=== PATIENT | male | born 1935 | race Caucasian/White ===

== ENCOUNTER 2024-03-08 09:57 | Observation (INO) ==
--- NOTE | 2024-03-08 10:44 | Emergency Department Note ---
Impression & Plan UTI (urinary tract infection), Tick bite of abdomen ED Provider Note NAME: LOIS DINERO AGE: 88 SEX: M : 1935 ARRIVES VIA: Walk-In INFORMANT: Patient ED PROVIDER(S): Oliver Mckeon DO CHIEF COMPLAINT: Shaking chills, weakness HPI: Patient is an 88-year-old male who presents to the ER for symptoms that started last night. He admits to shaking chills for several hours. He could not control himself. With this he notes he was also confused. Denies any headache or change in vision. No chest pain or shortness of breath. No cough or congestion. No belly pain. No nausea, vomiting, or diarrhea. Admits to a tick bite which she removed over the past several days. No rash. No recorded fevers that he is aware of. Daughter provides additional history and notes that the tick bite is on his abdomen. ADDITIONAL HISTORY OBTAINED: Per HPI Chronic Medical/Social Conditions Affecting Care: Per HPI PAST MEDICAL HISTORY:See Below PAST SURGICAL HISTORY:See Below FAMILY HISTORY:See Below SOCIAL HISTORY:See Below HOME MEDICATIONS:See Below ALLERGIES:See Below VITALS:See Below PHYSICAL EXAMINATION: GENERAL: Sitting up in bed, alert, well appearing, well nourished, no distress, non-toxic EYE EXAM: normal conjunctiva. PERRL and EOM's grossly intact. OROPHARYNX: no exudate, no erythema, lips, buccal mucosa, and tongue normal and mucous membranes are moist NECK: supple, no nuchal rigidity, no adenopathy, non-tender LUNGS: Clear to auscultation. Normal chest wall mechanics HEART: no murmurs, S1 normal and S2 normal ABDOMEN: abdomen soft, non-tender, normo-active bowel sounds, no masses, no rebound or guarding. BACK: Back is symmetrical on inspection and there is no deformity, no midline tenderness, no CVA tenderness. SKIN: no rashes and no bruising UPPER EXTREMITIES: upper extremities are grossly normal. LOWER EXTREMITIES: No pitting edema. NEURO EXAM: Normal sensorium, cranial nerves II-XII grossly intact, normal speech, no gross weakness of arms, no gross weakness of legs. MEDICAL DECISION MAKING: Patient is an 88-year-old male who presents to the ER for rigors. IV was established medicos obtained. Labs show no significant leukocytosis or anemia. BMP with mild hypokalemia at 133. Creatinine slightly up at 1.7. Lactate was normal at 1.8. Pro-Aric normal. UA consistent with UTI when resulted just after admission. Chest x-ray with a questionable left lower lobe infiltrate. Patient was covered with Rocephin and azithromycin. Lyme was negative. Patient with the confusion and weakness and rigors was discussed with the hospitalist for further evaluation management treatment. Consults/Care Managements Discussions: Per MDM Triage Nursing notes reviewed. Limited review of prior medical records performed Vital Signs: reviewed and remarkable for HTN Differential diagnosis: Differential diagnosis includes etiologies such as sepsis, UTI, pneumonia, metabolic, electrolyte abnormalities, cardiac sources, intracerebral event, toxicologic, neurological, as well as others were entertained. ER treatment provided: See below Diagnostics interpreted by me include EKG and cardiac monitoring as listed below: -Cardiac Monitoring: An order was placed for continuous cardiac monitoring. The monitor shows a rate of 80 with sinus rhythm. -ECG: none -Laboratory studies:Interpreted by me as stated above in MDM and shown below. Imaging studies: Xrays: As interpreted by me: Portable AP upright 1 view of the chest shows questionable left lower lobe infiltrate CTs show: none Procedures:none Critical Care: None Past Med/Surg History Problem List (Updated 03/08/24 @ 14:43 by Oliver Mckeon DO) Tick bite of abdomen (Acute) UTI (urinary tract infection) (Acute) Medical History (Updated 03/08/24 @ 14:43 by Oliver Mckeon DO) Anxiety CKD (chronic kidney disease) stage 3, GFR 30-59 ml/min GERD (gastroesophageal reflux disease) HLD (hyperlipidemia) HTN (hypertension) CAD (coronary artery disease) Surgical History (Updated 03/08/24 @ 12:14 by Beatriz De La Cruz PA-C) Hx of cystoscopy Hx of inguinal hernia repair Hx of coronary artery bypass graft History of tonsillectomy and adenoidectomy Hx of prostatectomy Family History (Updated 03/08/24 @ 12:14 by Beatriz De La Cruz PA-C) Other Cancer Coronary heart disease Stroke Social History (Updated 03/08/24 @ 12:15 by Beatriz De La Cruz PA-C) Smoking Status: Never smoker Hx Alcohol Use: No Hx Substance Use: No Preferred Language: Luxembourgish Feels Safe at Home: Yes Allergies Allergies Allergy/AdvReac Type Severity Reaction Status Date / Time No Known Allergies Allergy Mild Unverified 09/04/03 11:41 Home Meds Home Medications Medication Instructions Recorded Confirmed albuterol sulfate 90 mcg/actuation 2 puff inhalation Q6H PRN 03/08/24 03/08/24 aerosol inhaler cough,sob,wheezing amlodipine 2.5 mg tablet 2.5 mg PO QAM 03/08/24 03/08/24 aspirin 81 mg tablet,delayed 81 mg PO QAM 03/08/24 03/08/24 release citalopram 20 mg tablet 20 mg PO QAM 03/08/24 03/08/24 isosorbide mononitrate 60 mg 60 mg PO QAM 03/08/24 03/08/24 tablet,extended release 24 hr metoprolol succinate 25 mg 12.5 mg PO QAM 03/08/24 03/08/24 tablet,extended release 24 hr nitroglycerin 0.4 mg sublingual 0.4 mg sublingual UD PRN Chest Pain 03/08/24 03/08/24 tablet rosuvastatin 5 mg tablet 5 mg PO QAM 03/08/24 03/08/24 Results & Data (ED) Vital Signs Vital Signs - 24 hr 03/08/24 09:58 03/08/24 10:08 03/08/24 12:01 Temperature 37.4 C Temperature Source Oral Pulse Rate 74 Pulse Rate [Finger] 63 Respiratory Rate 16 18 Respiratory Effort / Characteristics Non-Labored Spontaneous Blood Pressure 154/73 H Blood Pressure [Right Arm] 140/72 Blood Pressure Mean 100 Blood Pressure Mean [Right Arm] 94 Blood Pressure Position Sitting Pulse Oximetry 94 98 Oxygen Delivery Method Room Air Room Air Room Air Sepsis Recent Fever Within 48 Hours No Sepsis New/Unexplained Change in Mental Status N/A Sepsis Action Taken by Nursing No Action Required Laboratory Data 03/08/24 10:33 03/08/24 10:33 Lab Results 03/08/24 03/08/24 03/08/24 Range/Units 10:33 10:47 11:47 WBC 6.27 (4.8-10.8) K/ul RBC 4.40 L (4.70-6.10) M/uL Hgb 14.0 (14.0-18.0) g/dl Hct 41.1 L (42.0-52.0) % MCV 93.4 (80.0-100.0) fL MCH 31.8 (25.0-34.0) pg MCHC 34.1 (32.0-36.0) g/dL RDW Std Deviation 52.8 H (36.4-46.3) fL RDW Coeff of Law 15.3 H (11.5-14.5) % Plt Count 212 (130-400) K/uL MPV 9.8 (9.4-12.4) fL Immature Gran % (Auto) 1.8 % Neut % (Auto) 80.2 % Lymph % (Auto) 10.2 % Tyler % (Auto) 7.3 % Eos % (Auto) 0.0 % Baso % (Auto) 0.5 % Neut # (Auto) 5.03 (1.40-6.50) K/uL Lymph # (Auto) 0.64 L (1.20-3.40) K/uL Tyler # (Auto) 0.46 (0.11-0.59) K/uL Eos # (Auto) 0.00 (0.00-0.50) K/uL Baso # (Auto) 0.03 (0.00-0.20) K/uL Immature Gran # (Auto) 0.11 (0.01-0.20) K/uL Sodium 133 L (136-145) mmol/L Potassium 4.1 (3.5-5.1) mmol/L Chloride 102 (98-107) mmol/L Carbon Dioxide 23 (21-32) mmol/L Anion Gap 8 (3-11) BUN 26 H (6-23) mg/dl Creatinine 1.72 H (0.6-1.4) mg/dl Est Cr Clr Drug Dosing Not Reportable eGFR 37.53 BUN/Creatinine Ratio 15.1 (10-20) Glucose 140 H (70-99(Fasting)) mg/dl Lactate 1.8 (0.4-2.0) mmol/L Calcium 9.3 (8.6-10.3) mg/dl Total Bilirubin 1.4 H (0.2-1.0) mg/dl Direct Bilirubin 0.2 (0-0.2) mg/dl AST 24 (13-39) U/L ALT 22 (7-52) U/L Alkaline Phosphatase 62 (34-104) U/L Total Protein 6.9 (6.0-8.3) gm/dl Albumin 4.2 (3.4-5.0) gm/dl Globulin 2.7 (2.5-4.0) gm/dl Albumin/Globulin Ratio 1.6 (0.9-2) Lipase 13 (11-82) U/L Procalcitonin 0.40 (0-0.5) ng/ml Urine Color Yellow Urine Appearance Cloudy A (Clear) Urine pH 7.0 (4.5-7.5) Ur Specific [place] 1.017 (1.000-1.030) Urine Protein 1+ H (Negative) Urine Glucose (UA) Negative (Negative) Urine Ketones Negative (Negative) Urine Blood Negative (Negative) Urine Nitrite Negative (Negative) Urine Bilirubin Negative (Negative) Urine Urobilinogen Negative (Negative) Ur Leukocyte Esterase 1+ H (Negative) Urine WBC (Auto) 11-20 H (0-5) /hpf Urine RBC (Auto) 0-2 (0-2) /hpf U Hyaline Cast (Auto) 0-2 (0-2) /lpf U Epithel Cells (Auto) 0-2 (0-2) /hpf Urine Bacteria (Auto) 4+ H (None Seen) Lyme Disease Screen Negative (Negative) Administered Medications Discontinued Medications Azithromycin (Azithromycin 250 Mg Tab) 500 mg PO NOW ONE Stop: 03/08/24 11:36 Last Admin: 03/08/24 11:52 Dose: 500 mg Documented By: MYRNA Sodium Chloride (Nss) 1,000 mls @ 999 mls/hr IV .Q1H1M ONE Stop: 03/08/24 11:41 Last Infusion: 03/08/24 14:19 Dose: Infused Documented By: Admin: 03/08/24 11:12 Dose: 999 mls/hr Documented By: MYRNA Ceftriaxone Sodium (Rocephin) 2,000 mg in 50 mls @ 100 mls/hr IV NOW STA Stop: 03/08/24 12:04 Last Infusion: 03/08/24 14:19 Dose: Infused Documented By: Admin: 03/08/24 11:52 Dose: 100 mls/hr Documented By: MYRNA Imaging Data Radiologist's Impression: Chest X-Ray 03/08/24 10:41 SINGLE VIEW CHEST CLINICAL HISTORY: Sepsis. FINDINGS: An AP, portable, upright chest radiograph is obtained. No prior studies are available for comparison at the time of dictation. The patient is status post midline sternotomy. The heart is enlarged noting atherosclerotic calcification of the thoracic aorta. The pulmonary vasculature is noncongested. There is airspace consolidation at the left lung base and a small left pleural effusion. Scarring/atelectasis is noted at the right lung base. No pneumothorax is seen. The skeletal structures are osteopenic. The bony thorax is grossly intact. Degenerative change is noted in the shoulders and spine. IMPRESSION: 1. Cardiomegaly without radiographic evidence of congestive failure. 2. Left basilar consolidation could represent atelectasis versus pneumonia/aspiration pneumonitis. Clinical correlation will be required and radiographic follow-up to resolution is recommended. Follow-up imaging should include both PA and lateral views. 3. Small left pleural effusion. ACT 112: Negative or not required by law. Electronically signed by: Jonathan Dill M.D. 03/08/2024 10:[address] 03/08/24 10:42 CT head/brain wo con CLINICAL HISTORY: 88 years-old Male with ams. Acutely altered mental status TECHNIQUE: Multiple axial CT images of the head were obtained without contrast. A dose lowering technique was utilized adhering to the principles of ALARA. CT DOSE: 625.8 mGy.cm COMPARISON: None. FINDINGS: No acute intracranial hemorrhage, midline shift, intracranial mass, hydrocephalus, territorial ischemia or abnormal extra-axial collection. Involutional changes with chronic microvascular ischemic disease. Chalo cisterna magna. The calvarium is intact. Trace mastoid effusions. Minimal mucosal thickening of the ethmoid air cells. Unremarkable soft tissues. Prior bilateral lens repair. IMPRESSION: No acute intracranial abnormality identified. ACT 112: Negative or not required by law. The above report was generated using voice recognition software. It may contain grammatical, syntax or spelling errors. Electronically signed by: Dagoberto Garcia M.D. 03/08/2024 11:35 AM Discharge Plan Visit Data Chief Complaint: Confusion Stated Complaint: CONFUSION, POSSIBLE FEVER, TIC, WEAKNESS, CHILLS ED Provider: Oliver Mckeon Discharge Problem: UTI (urinary tract infection), Tick bite of abdomen Patient Disposition: Admitted As Inpatient Discharge Instructions Interventions: ED Discharge Assessment Last Done: 03/08/24 14:37
--- NOTE | 2024-03-08 10:51 | XRay Report ---
SINGLE VIEW CHEST CLINICAL HISTORY: Sepsis. FINDINGS: An AP, portable, upright chest radiograph is obtained. No prior studies are available for c omparison at the time of dictation. The patient is status post midline sternotomy. The heart is enlar ged noting atherosclerotic calcification of the thoracic aorta. The pulmonary vasculature is nonconge sted. There is airspace consolidation at the left lung base and a small left pleural effusion. Scarri ng/atelectasis is noted at the right lung base. No pneumothorax is seen. The skeletal structures are osteopenic. The bony thorax is grossly intact. Degenerative change is noted in the shoulders and spin e. IMPRESSION: 1. Cardiomegaly without radiographic evidence of congestive failure. 2. Left basilar consolidation could represent atelectasis versus pneumonia/aspiration pneumonitis. Cl inical correlation will be required and radiographic follow-up to resolution is recommended. Follow-u p imaging should include both PA and lateral views. 3. Small left pleural effusion. ACT 112: Negative or not required by law. Electronically signed by: Jonathan Dill M.D. 03/08/2024 10:49 AM
[2024-03-08 10:55] LABS: Basophils # (auto) 0.03 K/uL (0.00-0.20); Basophils % (auto) 0.5 %; Hematocrit (blood only) 41.1 % (42.0-52.0); Immature Granulocytes # (auto) 0.11 K/uL (0.01-0.20); Immature Granulocytes % (auto) 1.8 %; Lymphocytes # (auto) 0.64 K/uL (1.20-3.40); Lymphocytes % (auto) 10.2 %; Mean Corpuscular Hemoglobin 31.8 pg (25.0-34.0); Mean Corpuscular Hgb Conc 34.1 g/dL (32.0-36.0); Mean Corpuscular Volume 93.4 fL (80.0-100.0); Mean Platelet Volume 9.8 fL (9.4-12.4); Monocytes # (auto) 0.46 K/uL (0.11-0.59); Monocytes % (auto) 7.3 %; Neutrophils # (auto) 5.03 K/uL (1.40-6.50); Neutrophils % (auto) 80.2 %; Platelet Count 212 K/uL (130-400); RDW Coefficient of Variation 15.3 % (11.5-14.5); RDW Standard Deviation 52.8 fL (36.4-46.3); White Blood Count 6.27 K/ul (4.8-10.8)
[2024-03-08] MEDS: SODIUM CHLORIDE 0.9% 1,000 ML IV ONE (11:12)
[2024-03-08 11:13] LABS: Alanine Aminotransferase 22 U/L (7-52); Albumin Globulin Ratio 1.6 (0.9-2); Albumin Level 4.2 gm/dl (3.4-5.0); Alkaline Phosphatase 62 U/L (34-104); Anion Gap 8 (3-11); Aspartate Aminotransferase 24 U/L (13-39); BUN Creatinine Ratio 15.1 (10-20); Bilirubin,Total 1.4 mg/dl (0.2-1.0); Blood Urea Nitrogen 26 mg/dl (6-23); Calcium 9.3 mg/dl (8.6-10.3); Carbon Dioxide 23 mmol/L (21-32); Chloride 102 mmol/L (98-107); Globulin 2.7 gm/dl (2.5-4.0); Glucose 140 mg/dl (70-99(Fasting)); Lipase 13 U/L (11-82); Potassium 4.1 mmol/L (3.5-5.1); Sodium 133 mmol/L (136-145); Total Protein 6.9 gm/dl (6.0-8.3)
--- NOTE | 2024-03-08 11:36 | CT Scan Report ---
CT head/brain wo con CLINICAL HISTORY: 88 years-old Male with ams. Acutely altered mental status TECHNIQUE: Multiple axial CT images of the head were obtained without contrast. A dose lowering tech nique was utilized adhering to the principles of ALARA. CT DOSE: 625.8 mGy.cm COMPARISON: None. FINDINGS: No acute intracranial hemorrhage, midline shift, intracranial mass, hydrocephalus, territorial ischem ia or abnormal extra-axial collection. Involutional changes with chronic microvascular ischemic disea se. Chalo cisterna magna. The calvarium is intact. Trace mastoid effusions. Minimal mucosal thickening of the ethmoid air cell s. Unremarkable soft tissues. Prior bilateral lens repair. IMPRESSION: No acute intracranial abnormality identified. ACT 112: Negative or not required by law. The above report was generated using voice recognition software. It may contain grammatical, syntax o r spelling errors. Electronically signed by: Dagoberto Garcia M.D. 03/08/2024 11:35 AM
[2024-03-08] MEDS: cefTRIAXone SODIUM 2,000 MG/50 ML BAG IV STA (11:52)
[2024-03-08] MEDS: AZITHROMYCIN 250 MG TAB PO ONE (11:52)
[2024-03-08 12:16] LABS: Appearance Urine Cloudy (Clear); Bacteria Urine Automated 4+ (None Seen); Bilirubin Urine Negative (Negative); Blood Urine Negative (Negative); Cast Urine Automated 0-2 /lpf (0-2); Color Urine Yellow; Epithelial Cell Urine Auto 0-2 /hpf (0-2); Glucose Urine UA Negative (Negative); Ketones Urine Negative (Negative); Leukocyte Esterase Urine 1+ (Negative); Nitrite Urine Negative (Negative); Protein Urine 1+ (Negative); RBC Urine Automated 0-2 /hpf (0-2); Specific Gravity Urine 1.017 (1.000-1.030); Urobilinogen Urine Negative (Negative)
--- NOTE | 2024-03-08 12:16 | History & Physical Report ---
Date of Service March 08, 2024 Assessment & Plan (1) UTI (urinary tract infection): (2) CAD (coronary artery disease): (3) CKD (chronic kidney disease) stage 3, GFR 30-59 ml/min: (4) HTN (hypertension): (5) Tick bite of abdomen: Plan This is an 88-year-old male who has significant past medical history of CAD with history of angioplasty and stent, HTN and GERD, BPH, CKD stage III baseline creatinine 1.7 and anxiety who presents to the ED due to rigors, chills and episodic confusion x 1 day. Chills/Rigors Possible UTI Metabolic encephalopathy - resolved at time of admission Possible PNA Recent covid19 infection in 01/2024 admit to med/surg currently he is not requiring supplemental oxygen and he does not have a leukocytosis CXR:Left basilar consolidation could represent atelectasis versus pneumonia/aspiration pneumonitis. Clinical correlation will be required and radiographic follow-up to resolution is recommended. Follow-up imaging should include both PA and lateral views. CT head: negative, sx resolved no indication for MRI at this time Await blood and urine cultures empirically treat with IV rocephin 2g daily and doxycycline 100mg BID for possible UTI/PNA/tick bite PT/OT encourage oral intake Tick bite: RLQ abd wall, no erythema migrans, initial lyme screen negative, tick was engorged, pt currently on Doxy to cover to Pulm - would recommend 10 day course to cover for lyme as well CKD-3b:chronic, stable, cr at baseline, avoid nephrotoxic agents CAD with hx of CABG/angioplasty: chronic HAM[place]TON/exertional CP, follows cards, continue ASA, crestor, metoprolol, amlodipine, imdur HTN: chronic, stable, continue amlodipine, imdur, metoprolol HLD: chronic, stable, continue statin DVT ppx: Heparin FULL CODE PCP: Garrison Dean Dispo: admit to med/surg, await cultures, I spent a total of 60 minutes reviewing notes, outpatient records, labs, med ication, coordinating, documenting and providing care for this patient excluding time spent in the performance of separately billed services. Pt was seen and examined in collaboration with Dr. Irwin, please see addendum History of Present Illness Chief Complaint: Rigors/Chills x 1 day. Primary Care Provider: Garrison Dean DO This is an 88-year-old male who has significant past medical history of CAD with history of angioplasty and stent, HTN and GERD, BPH, CKD stage III baseline creatinine 1.7 and anxiety who presents to the ED due to rigors, chills and episodic confusion x 1 day. History obtained from ED provider, patient and external chart review.Daughter at bedside also helps elicit history. Patient reports last evening he became very chilled. He had to put on his insulated underwear and wrapped up in a quilted blanket. He felt like he had a fever but was unable to take it due to not being able to locate his thermometer. He also felt like he was confused and disoriented. When trying to walk he felt like he had to hold onto things. He does have a degree of ambulatory dysfunction at baseline, but this was much worse. When he woke up this morning he still felt slightly disoriented and called his daughter. According to the daughter patient was not slurring his words but did appear anxious. She went over to patient's house and brought him immediately to the ED. Patient denies any sweats, lightheadedness, dizziness, nausea, vomiting, abdominal pain, change in his bowel or urinary habits. He does have chronic shortness of breath in the setting of his CAD. He also has chronic exertional angina for which he follows with cardiology. He has a mild dry cough. He was dx with covid-19 in january, but this has resolved. He has a poor appetite at baseline. He has been trying to increase his fluid intake. He also reports on Tuesday he pulled a tick off to his right lower quadrant of his abdomen. He is unsure how long it was there and feels it was likely engorged. He did not try any oavy-mmv-cigvmgh medications at home. In ED patient remained hemodynamically stable. His CBC and CMP was generally unremarkable. His creatinine was at baseline at 1.7. His urinalysis was concerning for possible infection. His initial Lyme disease screen was negative. Chest x-ray revealed concern for possible left lower lobe atelectasis versus infiltrate. He received a liter of IV fluid, IV Rocephin and oral azithromycin. Patient does report he has a history of UTIs in the past. He also reports whenever he had Lyme's disease over a year ago and he had a fever he was disoriented at that time as well. Allergies Allergy/AdvReac Type Severity Reaction Status Date / Time No Known Allergies Allergy Mild Unverified 09/04/03 11:41 Home Medications Medication Instructions Recorded Confirmed Type albuterol sulfate 90 mcg/actuation 2 puff inhalation Q6H PRN 03/08/24 03/08/24 History aerosol inhaler cough,sob,wheezing amlodipine 2.5 mg tablet 2.5 mg PO QAM 03/08/24 03/08/24 History aspirin 81 mg tablet,delayed 81 mg PO QAM 03/08/24 03/08/24 History release citalopram 20 mg tablet 20 mg PO QAM 03/08/24 03/08/24 History isosorbide mononitrate 60 mg 60 mg PO QAM 03/08/24 03/08/24 History tablet,extended release 24 hr metoprolol succinate 25 mg 12.5 mg PO QAM 03/08/24 03/08/24 History tablet,extended release 24 hr nitroglycerin 0.4 mg sublingual 0.4 mg sublingual UD PRN Chest Pain 03/08/24 03/08/24 History tablet rosuvastatin 5 mg tablet 5 mg PO QAM 03/08/24 03/08/24 History Past Med/Surg History Problem List (Updated 03/08/24 @ 12:48 by Beartiz De La Cruz PA-C) Tick bite of abdomen UTI (urinary tract infection) Medical History (Updated 03/08/24 @ 12:48 by Beatriz De La Cruz PA-C) Anxiety CKD (chronic kidney disease) stage 3, GFR 30-59 ml/min GERD (gastroesophageal reflux disease) HLD (hyperlipidemia) HTN (hypertension) CAD (coronary artery disease) Surgical History (Updated 03/08/24 @ 12:14 by Beatriz De La Cruz PA-C) Hx of cystoscopy Hx of inguinal hernia repair Hx of coronary artery bypass graft History of tonsillectomy and adenoidectomy Hx of prostatectomy Family History (Updated 03/08/24 @ 12:14 by Beatriz De La Cruz PA-C) Other Cancer Coronary heart disease Stroke Social History (Updated 03/08/24 @ 12:15 by Beatriz De La Cruz PA-C) Smoking Status: Never smoker Hx Alcohol Use: No Hx Substance Use: No Preferred Language: Vietnamese Feels Safe at Home: Yes Review of Systems Review of Systems: All systems reviewed & are unremarkable except as noted in HPI & below Physical Exam Physical Exam: Constitutional: WD/WN, vitals as above, NAD, sitting up in bed, pleasant, conversing easily Head: Normocephalic, Atraumatic Eyes: PERRL, conjunctivae normal, anicteric sclerae ENMT: external ear and nose normal, oropharynx normal Neck: trachea midline, no thyromegaly normal visual inspection Respiratory: normal respiratory effort, lungs clear to auscultation, no wheeze, rales, rhonchi. Normal insp/exp effort, no accessory muscle use Cardiovascular: RRR, no murmur, no edema Vessels: no JVD or carotid bruit Chest: normal inspection of chest Abdomen: normal bowel sounds, soft, nontender, no hepatosplenomegaly Musculoskeletal: no cyanosis or clubbing, extremities motor strength 5/5 Skin: + evidence of insect bite on RLQ of abd, no erythema migrans, no rashes, warm and dry normal turgor Neurologic: PERRL, EOMI, accommodation nl, no face palsy, no dysarthria CN's II-XI intact bilaterally and moves all extremities Psychiatric: A+Ox3, euthymic affect Lymphatic: no cervical or axillary lymphadenopathy : deferred Results & Data Results & Data Vital Signs (Past 12 Hours) Vital Signs Temp Pulse Pulse Resp BP BP Pulse Ox 03/08/24 12:01 63 18 140/72 98 03/08/24 10:08 03/08/24 09:58 37.4 C 74 16 154/73 H 94 O2 Del Method 03/08/24 12:01 Room Air 03/08/24 10:08 Room Air 03/08/24 09:58 Room Air Laboratory Results I have independently reviewed and interpreted patient's admitting labs including CBC, CMP, lipase, procal, UA, LA Diagnostic Findings Chest X-Ray 03/08/24 10:41 SINGLE VIEW CHEST CLINICAL HISTORY: Sepsis. FINDINGS: An AP, portable, upright chest radiograph is obtained. No prior studies are available for comparison at the time of dictation. The patient is status post midline sternotomy. The heart is enlarged noting atherosclerotic calcification of the thoracic aorta. The pulmonary vasculature is noncongested. There is airspace consolidation at the left lung base and a small left pleural effusion. Scarring/atelectasis is noted at the right lung base. No pneumothorax is seen. The skeletal structures are osteopenic. The bony thorax is grossly intact. Degenerative change is noted in the shoulders and spine. IMPRESSION: 1. Cardiomegaly without radiographic evidence of congestive failure. 2. Left basilar consolidation could represent atelectasis versus pneumonia/aspiration pneumonitis. Clinical correlation will be required and radiographic follow-up to resolution is recommended. Follow-up imaging should include both PA and lateral views. 3. Small left pleural effusion. ACT 112: Negative or not required by law. Electronically signed by: Jonathan Dill M.D. 03/08/2024 10:[address] 03/08/24 10:42 CT head/brain wo con CLINICAL HISTORY: 88 years-old Male with ams. Acutely altered mental status TECHNIQUE: Multiple axial CT images of the head were obtained without contrast. A dose lowering technique was utilized adhering to the principles of ALARA. CT DOSE: 625.8 mGy.cm COMPARISON: None. FINDINGS: No acute intracranial hemorrhage, midline shift, intracranial mass, hydrocephalus, territorial ischemia or abnormal extra-axial collection. Involutional changes with chronic microvascular ischemic disease. Chalo cisterna magna. The calvarium is intact. Trace mastoid effusions. Minimal mucosal thickening of the ethmoid air cells. Unremarkable soft tissues. Prior bilateral lens repair. IMPRESSION: No acute intracranial abnormality identified. ACT 112: Negative or not required by law. The above report was generated using voice recognition software. It may contain grammatical, syntax or spelling errors. Electronically signed by: Dagoberto Garcia M.D. 03/08/2024 11:35 AM Medications Administered Medication List Discontinued Medications Azithromycin (Azithromycin 250 Mg Tab) 500 mg PO NOW ONE Stop: 03/08/24 11:36 Last Admin: 03/08/24 11:52 Dose: 500 mg Documented By: MYRNA Sodium Chloride (Nss) 1,000 mls @ 999 mls/hr IV .Q1H1M ONE Stop: 03/08/24 11:41 Last Admin: 03/08/24 11:12 Dose: 999 mls/hr Documented By: MYRNA Ceftriaxone Sodium (Rocephin) 2,000 mg in 50 mls @ 100 mls/hr IV NOW STA Stop: 03/08/24 12:04 Last Admin: 03/08/24 11:52 Dose: 100 mls/hr Documented By: BMK COVID-19 Results Results COVID-19 Adm Lab Results: RBC 4.40 M/uL (4.70-6.10) L 03/08/24 WBC 6.27 K/ul (4.8-10.8) 03/08/24 Hgb 14.0 g/dl (14.0-18.0) 03/08/24 Hct 41.1 % (42.0-52.0) L 03/08/24 Plt Count 212 K/uL (130-400) 03/08/24 Neutrophils (%) (Auto) 80.2 % 03/08/24 Lymphocytes (%) (Auto) 10.2 % 03/08/24 Monocytes # (Auto) 0.46 K/uL (0.11-0.59) 03/08/24 Eosinophils # (Auto) 0.00 K/uL (0.00-0.50) 03/08/24 Immature Granulocyte % (Auto) 1.8 % 03/08/24 Neutrophils # (Auto) 5.03 K/uL (1.40-6.50) 03/08/24 Lymphocytes # (Auto) 0.64 K/uL (1.20-3.40) L 03/08/24 Monocytes # (Auto) 0.46 K/uL (0.11-0.59) 03/08/24 Eosinophils # (Auto) 0.00 K/uL (0.00-0.50) 03/08/24 Basophils # (Auto) 0.03 K/uL (0.00-0.20) 03/08/24 Immature Granulocyte # (Auto) 0.11 K/uL (0.01-0.20) 4 Na 133 mmol/L (136-145) L 03/08/24 K 4.1 mmol/L (3.5-5.1) 03/08/24 Cl 102 mmol/L (98-107) 03/08/24 CO2 23 mmol/L (21-32) 03/08/24 Anion Gap 8 (3-11) 03/08/24 BUN 26 mg/dl (6-23) H 03/08/24 Creatinine 1.72 mg/dl (0.6-1.4) H 03/08/24 BUN/Creatinine Ratio 15.1 (10-20) 03/08/24 Glucose Level 140 mg/dl (70-99(Fasting)) H 03/08/24 Ca 9.3 mg/dl (8.6-10.3) 03/08/24 Total Bilirubin 1.4 mg/dl (0.2-1.0) H 03/08/24 Direct Bilirubin 0.2 mg/dl (0-0.2) 03/08/24 AST/SGOT 24 U/L (13-39) 03/08/24 ALT/SGPT 22 U/L (7-52) 03/08/24 Alkaline Phosphatase 62 U/L (34-104) 03/08/24 Total Protein 6.9 gm/dl (6.0-8.3) 03/08/24 Albumin 4.2 gm/dl (3.4-5.0) 03/08/24 Globulin 2.7 gm/dl (2.5-4.0) 03/08/24 Albumin/Globulin Ratio 1.6 (0.9-2) 03/08/24 Procalcitonin 0.40 ng/ml (0-0.5) 03/08/24 Chest X-Ray 03/08/24 Code Status & VTE Plan Code Status FULL CODE Supervising Physician Co-Signing Physician Notes Attending addendum: The patient was seen and examined in emergency room in presence of the daughter He has been complaining of shaking chills since last night and confusion Denies any chest pain, palpitation or shortness of breath Denies any problem with urination and/or bowel habit No abdominal pain, nausea and/or vomiting On examination Lying in bed without any apparent distress Afebrile and hemodynamically stable Chestminimal crackles left base Abdomenbenign, slight erythema about the size of a bradley right lower quadrant at the site of tick bite extremitiesno edema CNSalert, awake and oriented x 3. No focal sensory or motor deficit appreciated His admission labs, imaging studies noted Acute confusion likely secondary to UTI/tick bite illness Doubt any pneumonia involving the left lower lung UA suggestive of infection and will start intravenous ceftriaxone and doxycycline to cover the atypicals CT of the head has been negative and the confusion has been improving Agree with assessment and plan as outlined above by Caprice Irwin
[2024-03-08 13:15] LABS: Bilirubin Direct 0.2 mg/dl (0-0.2)
[2024-03-08] MEDS ORDERED: ACETAMINOPHEN 325 MG TAB PO PRN (14:37)
[2024-03-08] MEDS ORDERED: POLYETHYLENE (MIRALAX) 17 GM PACK PO PRN (14:37)
[2024-03-08] MEDS ORDERED: ONDANSETRON INJ 2 MG/ML 2 ML VIAL IV PRN (14:37)
[2024-03-08] MEDS ORDERED: FAMOTIDINE 20 MG TAB PO PRN (14:37)
[2024-03-08] MEDS: Patient's HEIGHT &/or WEIGHT Needed STA (15:39)
[2024-03-08] MEDS: METOPROLOL SUCC 25MG EXT REL TAB PO SCH (17:12)
[2024-03-08] MEDS: DOXYCYCLINE HYCLATE 100 MG CAP PO SCH (20:21)
[2024-03-08] MEDS ORDERED: MELATONIN 3 MG TAB PO PRN (21:00)
[2024-03-08] MEDS: HEPARIN SOD 5,000 UNIT/0.5 ML VIAL SQ SCH (21:12)
--- OUTSIDE RECORDS SUMMARY | 2024-03-09 07:51 | External Medical Summary | Summary of Care ---
Author Name Unknown Organization [facility] Address [address] [place] [address] Phone [phone] Care Team Providers Care Director Of Child Welfare Services Name Role Phone Garrison Dean DO Primary Care Provider Encounter Details Date Type Department Care Team (Late st Contact Info) Description 01/17/2024 Telephone Family Practice [facility] [address] [place] [address] Sandra Garner CRNP [address] [place] [address] Allergies Active Allergy Reactions Criticality Noted Date Comments Amoxicillin-Pot Clavulanate Diarrhea 10/22/2010 GI intolerance Gemfibrozil 04/25/2006 Severe intestinal gas and cramping Niacin Er 11/22/2006 Gas, chest pain Ezetimibe Muscle pain 04/23/2010 myalgias Simvastatin 04/23/2010 documented as of this encounter (statuses as of 01/18/2024) Medications Medication Sig Dispensed Refills Start Date End Date Status Magnesium Gluconate 250 MG TABS Take 1 Tab by mouth every other day. 06/03/2015 Active fluticasone (FLONASE) 50 MCG/ACT nasal sprayIndications:Ch ronic rhinitis Administer 2 Sprays into each nostril daily. 3 Bottle 3 07/04/2019 Active Zinc 50 MG Oral Capsule Take 1 Capsule by mouth as needed (Seasonal). Active B-12 500 MCG Oral Tablet Take by mouth. When he remembers Active amLODIPine Besylate 2.5 MG Oral Tablet (Norvasc)Indication s:HTN, goal below 150/90 Take 1 Tablet by mouth in the morning. In the morning.. 90 Tablet 3 06/16/2023 Active Metoprolol Succinate ER 25 MG Oral Tablet Extended Release 24 Hour (toPROL XL) Take 0.5 Tablets by mouth in the morning. 45 Tablet 3 06/16/2023 Active Isosorbide Mononitrate ER 60 MG Oral Tablet Extended Release 24 Hour (Imdur)Indications: HTN, goal below 140/90 Take 1 Tablet by mouth in the morning. 90 Tablet 3 10/04/2023 Active Nitroglycerin 0.4 MG Sublingual Tablet Sublingual (Nitrostat)Indicati ons:Precordial pain,Chronic ischemic heart disease Place 1 Tablet under the tongue every 5 minutes as needed (chest pain. Maximum 3 doses in 15 minutes.). 25 Tablet 3 12/05/2023 Active Citalopram Hydrobromide 20 MG Oral Tablet (CeleXA)Indications :Adjustment disorder with anxious mood Take 1 Tablet by mouth in the morning. 90 Tablet 3 12/05/2023 Active Aspirin 81 MG Oral Tablet Delayed ReleaseIndications: Chronic ischemic heart disease,HTN, goal below 140/90 Take 1 Tablet by mouth in the morning. 90 Tablet 3 12/05/2023 Active Rosuvastatin Calcium 5 MG Oral Tablet (Crestor) Take 1 Tablet by mouth in the morning. In the morning.. 90 Tablet 3 12/05/2023 Active predniSONE 20 MG Oral Tablet (Deltasone) Take 1 Tablet by mouth in the morning for 5 days. 5 Tablet 01/17/2024 01/22/2024 Active Albuterol Sulfate HFA 108 (90 Base) MCG/ACT Inhalation Aerosol SolutionIndications :Mild intermittent asthma with exacerbation Inhale 2 Puffs by mouth every 6 hours as needed for Cough, Shortness of Breath or Wheezing (chest tightness). 36 g 1 01/17/2024 Active Nirmatrelvir&Ritona vir 150/100 10 x 150 MG & 10 x 100MG Oral Tablet Therapy Pack (Paxlovid (150/100)) Take 1 pink tablet of Nirmatrelvir and 1 white tablet of Ritonavir two times a day by mouth. 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 Measure 3-4mm. HTN, goal below 150/90 05/03/2017 Incomplete emptying of bladder 03/15/2017 S/P angioplasty with stent 09/23/2014 Overview: MAURIZIO to Cx-om via right groin 09/23/2014 BPH with obstruction/lower urinary tract symptom s 01/01/2014 Statin intolerance 02/10/2012 Dyslipidemia, goal LDL below 70 05/01/2009 Overview: Per Lipid Taxonomy. Hiatal Hernia 06/27/1997 CHR ISCHEMIC HRT DIS NOS documented as of this encounter (statuses as of 01/18/2024) Resolved Problems Problem Noted Date Diagnosed Date Resolved Date Hypertensive kidney disease with stage 3b chronic kidney disease 03/24/2020 07/14/2021 Overview: Per CKD protocol Bronchitis, chronic 07/04/2019 07/04/19 20 Hypertensive kidney disease with chronic kidney disease stage III 12/14/2018 03/27/2020 Overview: Per CKD protocol Abnormal PFT 10/12/2017 11/30/2022 Environmental allergies 08/25/201711/13 Occupational exposure in workplace 08/25/2017 11/30/2022 KIDNEY DISEASE, CHRONIC, STA GE III (GFR 30-59 ML/MIN) 10/04/2011 12/28/2018 Overview: Per CKD protocol #1 HTN, goal below 140/90 11/22/200605/03 Examination of participant in clinical trial 7 08/29/2009 Overview: Renamed Per Clinical Trials Billing Project. Study Title: Genomic Markers for Patients with Cardiovascular Disease Project # [id number] GENOMICS CARDIO RESEARCH OTHER*[id number] 10/31/2006 06/22/2016 Overview: Renamed Per Clinical Trials Billing Project. Study Title: Genomic Markers for Patients with Cardiovascular Disease Project # [id number] ADVANCE DIRECTIVE INFORMATION 11/02/2004 12/19/2019 Overview: No, Advance Directive brochure given to patient. Historical. Encounter for long-term (cur rent) use of medications 03/23/2004 11/22/2006 Overview: ICD-10 update of inactive term LOC PRIM [id number] 03/27/200211/13 Dyslipidemia, goal to be determined 03/27/2002 05/01/2009 Overview: Per Lipid Taxonomy. PURE HYPERCHOLESTEROLEM 11/13 Urge incontinence 12/19/2019 Overview: Acute. documented as of this encounter (statuses as of 01/18/2024) Immunizations Name Administration Dates Next Due COVID-19 mRNA, LNP-s, No Pre serve, 2-Dose Series ([employer]) 03/02/2021,08/08/2020,07/11/2020 COVID-19, LNP-s, No Preserve , Mauricio-sucrose, Ages 12+ (Pfizer) 09/02/2021 Covid-19, Mrna, Lnp-s, Pf, B ivalent, 30 Mcg, IM, 12 yrs and above ([employer]) 03/09/2022 Pneumococcal Conjugate Vacc, 13 Valent (Prevnar) 03/21/2014 Pneumococcal Polysaccharide PPV23 (Pneumovax) 03/15/2006 RSV Vac., Bivalent, Perfusio n F, Pf,0.5 Ml (Abrysvo) 03/30/2023 Season Influenza, Quad, PF, Adjuvanted, 65+ Yrs, IM (FLUAD) 01/07/2020 Seasonal Influenza, PF, 6 M & above, IM , (FluLaval or Fluzone) 03/16/2018,02/26/2017 Seasonal Influenza, Quadriva lent Hd (Fluzone Hd) 02/25/2023,02/22/2022,02/17/2021 Seasonal Influenza, Quadriva lent, No Preserve, IM 02/19/2016,03/24/2015 Seasonal Influenza, Trivalen t, (IIV3), with Preserv, (Fluzone) 02/22/2014,02/22/2013,02/22/2012,02/15,02/24/2010,01/30/2009,02/19/2008 ,02/28/2007,03/15/2006 Seasonal Influenza, Trivalen t, Adjuvanted, 65+ YRS, PF, (Fluad) 02/26/2019 TD, Preservative Free 04/21/2009 TDAP (age 10 and older)(Boostrix) 03/24/2015 Varicella Zoster Vaccine (Adult) 03/25/2016 Zoster Vaccine Recombinant (Shingrix) 01/07/2020 ,10/29/2019 documented as of this encounter Social History Tobacco Use Types Packs/Day Years Used Date Smoking Tobacco: Never Smokeless Tobacco: Never Alcohol Use Standard Drinks/Week Comments Yes 0 (1 standard drink = 0.6 oz pur e alcohol) 3 per year if that PHQ-2 Answer Date Recorded PHQ Adult Total Score 0 11/30/2022 Hunger Vital Sign Answer Date Recorded Worried About Running Out of Food in the Last Ye ar Never true 07/04/2019 Ran Out of Food in the Last Year Never true 07/04/2019 Utilities Answer Date Recorded Do you have trouble paying y our heating, water, or electric bill? (Adult - for ages 18 years and over) Not on file 11/01/2023 Is your family able to pay t he heat, water, or electric bill? (Household - for ages 0-17 years) Not on file 11/01/2023 Does your family have access to good internet? (Household - for ages 0-17 years) Not on file 11/01/2023 Social Connections Answer Date Recorded How often do you feel lonely or isolated from those around you? (Adult - for ages 18 years and over) Not on file 11/01/2023 Sex and Gender Information Value Date Recorded Sex Assigned at Male 07/04/2019 10:33 AM EST Gender Identity Male 07/04/2019 10:33 AM EST Sexual Orientation Straight 07/04/2019 10 :33 AM EST Job Start Date Occupation Industry Not on file Not on file Not on file documented as of this encounter Miscellaneous Notes * Telephone Encounter - Wang Moore MD - 01/18/2024 4:54 PM EDT Renal dosing sent * Telephone Encounter - Zaria Javed LPN - 01/18/2024 4:41 PM EDT Pt aware, pharmacy picked. * Telephone Encounter - Sandra Garner CRNP - 01/17/2024 4:30 PM EDT PLEASE NOTIFY PATIENT HE IS POSITIVE FOR COVID RECOMMEND PAXLOVID BUT HE WILL NEED TO STOP STATIN WHILE ON IT wHAT PHARMACY? documented in this encounter Plan of Treatment Upcoming Encounters Date Type Department Care Team (Late st Contact Info) Description 05/08/2024 8:00 AM EST [facility] [address] [place] [address] Megan Gardner MD [address] [place] [address] 06/07/2024 9:40 AM EST Office Visit Family [facility] [address] [place] [address] Grecia James CRNP [address] [place] [address] 12/06/2024 8:20 AM EDT Office Visit Family Practice [facility] [address] [place] [address] Garrison Dean DO [address] [place] [address] Health Maintenance Due Date Last Done Comments Adult Wellness Visit 2000 CKD PHOS USE SMARTSET 80836 12/01/202311/13, 07/14/2021, 02/17/2021, Additional history exists Depression Screening 12/01/2023 11/30/2022 COVID-19 Vaccine ( season) 2024 03/09/2022, 09/02/2021, 03/02/2021, Additional history exists Influenza Vaccine (FLU shot) (#1) 2024 02/25/2023, 02/22/2022, 02/17/2021, Additional history exists Albumin/Creatinine Ratio 10/13/2024 024, 11/30/2022, 05/14/2022, Additional history exists CKD HGB USE SMARTSET 81118 10/13/202410/13, 11/30/2022, 11/30/2022, Additional history exists DTap/Tdap Vaccines (2 - Td or Tdap) 03/24/2025 03/24/2015, 04/21/2009 Pneumococcal Vaccine: 65+ Years Completed 03/21/2014, 03/15/2006, 02/29/1996 Zoster Vaccines Completed 01/07/2020, 10/14, 03/25/2016 HPV (Gardasil) Vaccine Aged Out No lo nger eligible based on patient's age to complete this topic Hepatitis B Vaccine Aged Out No longe r eligible based on patient's age to complete this topic MENINGOCOCCAL (MENACTRA/MENVEO) Aged Out No longer eligible based on patient's age to complete this topic documented as of this encounter Medical Devices Not on filedocumented as of this encounter Additional Health Concerns Infection Onset Date Last Indicated Resolved Time COVID-19 (confirmed) 01/17/2024 01/17/2024 documented as of this encounter Advance Directives * Full Code (Latest Code Status on File) Date Activated Date Inactivated Comments 09/23/2014 3:48 PM 09/24/2014 1:35 PM This order r eflects the patients wishes and were consensually agreed upon. Question Answer Comments Discussion of Advance Directives occurred with: Not Discussed Does the patient have a Living Will? No Does the patient have Health Care Power of Attor kamilla? No Care Teams Director Of Child Welfare Services Relationship Specialty Start Date End Date Garrison Dean DO [address] [place] [address] PCP - General Family Medicine 06/14/19 documented as of this encounter
--- OUTSIDE RECORDS SUMMARY | 2024-03-09 07:52 | External Medical Summary | Summary of Care ---
Author Name Unknown Organization [facility] Address [address] [facility] [address] Phone [phone] Care Team Providers Care Patient Registration Clerk Name Role Phone Garrison Deanoliva Primary Care Provider Reason for Visit * Reason Onset Date Comments Test Results 10/20/2023 Encounter Details Date Type Department Care Team (Late st Contact Info) Description 10/20/2023 Telephone Cardiology, [facility] [address] [place] [address] Olivia Lizama PA-C [address] [place] [address] Test Results Allergies Active Allergy Reactions Criticality Noted Date Comments Amoxicillin-Pot Clavulanate Diarrhea 10/22/2010 GI intolerance Gemfibrozil 04/25/2006 Severe intestinal gas and cramping Niacin Er 11/22/2006 Gas, chest pain Ezetimibe Muscle pain 04/23/2010 myalgias Simvastatin 04/23/2010 documented as of this encounter (statuses as of 10/20/2023) Medications Medication Sig Dispensed Refills Start Date End Date Status ASPIRIN 81 MG PO TBECIndications: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 Active Magnesium Gluconate 250 MG TABS Take 1 Tab by mouth every other day. 06/03/2015 Active fluticasone (FLONASE) 50 MCG/ACT nasal sprayIndications:Chr onic rhinitis Administer 2 Sprays into each nostril daily. 3 Bottle 3 07/04/2019 Active Omeprazole 40 MG Oral Capsule Delayed Release (PriLOSEC)Indication s:Diaphragmatic hernia without obstruction and without gangrene Take 1 Cap by mouth daily. 90 Cap 3 11/24/2020 Active Clopidogrel Bisulfate 75 MG Oral Tablet (pLAVix)Indications: S/P angioplasty with stent,Chronic ischemic heart disease,HTN, goal below 140/90 take 1 tablet by mouth once daily 90 Tab 5 12/08/2020 Active Zinc 50 MG Oral Capsule Take 1 Capsule by mouth as needed (Seasonal). Active Albuterol Sulfate HFA 108 (90 Base) MCG/ACT Inhalation Aerosol SolutionIndications: Mild intermittent asthma with exacerbation Inhale by mouth 2 Puffs every 6 hours as needed for Cough, Shortness of Breath or Wheezing (chest tightness). 36 g 1 11/09/2021 Active Famotidine 10 MG Oral Tablet (Pepcid) Take by mouth 1 Tablet in the morning. 90 Tablet 3 12/16/2021 Active B-12 500 MCG Oral Tablet Take by mouth. When he remembers Active Nitroglycerin 0.4 MG Sublingual Tablet Sublingual (Nitrostat)Indicatio ns:Precordial pain,Chronic ischemic heart disease Place 1 Tablet under the tongue every 5 minutes as needed (chest pain. Maximum 3 doses in 15 minutes.). 25 Tablet 3 11/30/2022 Active Rosuvastatin Calcium 10 MG Oral Tablet (Crestor)Indications :Coronary artery disease of bypass graft of [place] heart with stable angina pectoris (HCC),Dyslipidemia, goal LDL below 70 Take 1 Tablet by mouth in the morning. 34 Tablet 11 01/13/2023 Active amLODIPine Besylate 2.5 MG Oral Tablet (Norvasc)Indications :HTN, goal below 150/90 Take 1 Tablet by mouth in the morning. In the morning.. 90 Tablet 3 06/16/2023 Active Citalopram Hydrobromide 20 MG Oral Tablet (CeleXA)Indications: Adjustment disorder with anxious mood Take 1 Tablet by mouth in the morning. 90 Tablet 3 06/16/2023 Active Metoprolol Succinate ER 25 MG Oral Tablet Extended Release 24 Hour (toPROL XL) Take 0.5 Tablets by mouth in the morning. 45 Tablet 3 06/16/2023 Active Isosorbide Mononitrate ER 60 MG Oral Tablet Extended Release 24 Hour (Imdur)Indications:H TN, goal below 140/90 Take 1 Tablet by mouth in the morning. 90 Tablet 3 10/04/2023 Active documented as of this encounter (statuses as of 10/20/2023) Active Problems Problem Noted Date Diagnosed Date Mild intermittent asthma with exacerbation 11/30 Asymptomatic stenosis of right carotid artery Hypertensive kidney disease with stage 3b chronic kidney disease 05/03/2022 Chronic kidney disease, stage 3b 09/23/2020 Overview: Per CKD protocol Coronary artery disease of b ypass graft of [place] heart with stable angina pectoris 07/10/2020 Renal [...] as of this encounter (statuses as of 10/20/2023) Resolved Problems Problem Noted Date Diagnosed Date [...] for Patients with Cardiovascular Disease Project # [id number] GENOMICS CARDIO RESEARCH OTHER*[id number] 10/31/2006 06/22/2016 Overview: Renamed Per Clinical Trials Billing Project. Study Title: Genomic Markers for Patients with Cardiovascular Disease Project # [id number] ADVANCE DIRECTIVE INFORMATION 11/02/2004 12/19/2019 Overview: No, Advance Directive brochure given to patient. Historical. Encounter for long-term (cur rent) use of medications 03/23/2004 11/22/2006 Overview: ICD-10 update of inactive term LOC PRIM [id number] 03/27/200211/13 Dyslipidemia, goal to be determined 03/27/2002 05/01/2009 Overview: Per Lipid Taxonomy. PURE HYPERCHOLESTEROLEM 11/13 Urge incontinence 12/19/2019 Overview: Acute. documented as of this encounter (statuses as of 10/20/2023) Immunizations Name Administration Dates Next Due COVID-19 mRNA, LNP-s, No Pre serve, 2-Dose Series ([employer]) 03/02/2021,08/08/2020,07/11/2020 COVID-19, LNP-s, No Preserve , Mauricio-sucrose, Ages 12+ (Pfizer) 09/02/2021 Covid-19, Mrna, Lnp-s, Pf, B ivalent, 30 Mcg, IM, 12 yrs and above ([employer]) 03/09/2022 Pneumococcal Conjugate Vacc, 13 Valent (Prevnar) [...] lent, No Preserve, IM 02/19/2016,03/24/2015 Seasonal Influenza, Split, I IV3, With Preserve, Inj 02/22/2014,02/22/2013,02/22/2012,02/15,02/24/2010,01/30/2009,02/19/2008 ,02/28/2007,03/15/2006 Seasonal Influenza, Trivalen t, Adjuvanted, 65+ yrs 02/26/2019 TD, Preservative Free 04/21/2009 TDAP (age [...] in the Last Year Never true 07/04/2019 Sex and Gender Information Value Date Recorded Sex Assigned at Male 07/04/2019 10:33 AM EST Gender Identity Male 07/04/2019 10:33 AM EST Sexual Orientation Straight 07/04/2019 10 :33 AM EST Job Start Date Occupation Industry Not on file Not on file Not on file documented as of this encounter Miscellaneous Notes * Telephone Encounter - Summer Ortega LPN - 10/20/2023 11:26 AM EDT Letter * Telephone Encounter - Summer Ortega LPN - 10/20/2023 11:26 AM EDT ----- Message from Ana Orlando sent at 10/19/2023 1:09 PM EDT ----- Results reviewed in coverage of Olivia Lizama PA-C LVEF normal 59%. Mild aortic stenosis with mild aortic regurgitation noted. This is something that will be monitored yearly. No changes needed at this time. documented in this encounter Plan of Treatment Upcoming Encounters Date Type Department Care Team (Late st Contact Info) Description 12/05/2023 8:00 AM EDT Office Visit Family [facility] [address] [place] [address] Garrison Dean DO [address] [place] [address] 05/08/2024 8:00 AM EST Office Visit Nephrology, [facility] [address] [place] [address] Megan Gardner MD [address] [place] [address] Health Maintenance Due Date Last Done Comments COVID-19 Vaccine ( season) 2023 03/09/2022, 09/02/2021, 03/02/2021, Additional history exists CKD PHOS USE SMARTSET 43807 12/01/202311/13, 07/14/2021, 02/17/2021, Additional history exists Depression Screening 12/01/2023 11/30/2022 Albumin/Creatinine Ratio 10/13/20242 024, 11/30/2022, 05/14/2022, Additional history exists CKD HGB USE SMARTSET 02256 10/13/202410/13, 11/30/2022, 11/30/2022, Additional history exists DTaP,Tdap,and Td Vaccines (2 - Td or Tdap) 03/24/2025 03/24/2015, 04/21/2009 Pneumococcal Vaccine: 65+ Years Completed 03/21/2014, 03/15/2006, 02/29/1996 Zoster Vaccines Completed 01/07/2020, 10/14, 03/25/2016 Influenza Vaccine (FLU shot) Completed , 02/22/2022, 02/17/2021, Additional history exists GARDASIL-HPV IMMUNIZATION SERIES Aged Out No longer eligible based on patient's age to complete this topic Hepatitis B Aged Out No longer eligi ble based on patient's age to complete this topic MENINGOCOCCAL (MENACTRA/MENVEO) Aged Out No longer eligible based on patient's age to complete this topic documented as of this encounter Medical Devices Not on filedocumented as of this encounter Advance Directives * [...] Power of Attor kamilla? No Care Teams Patient Registration Clerk Relationship Specialty Start Date End Date Garrison Dean DO [address] [place] [address] PCP - General Family Medicine 06/14/19 documented as of this encounter
--- OUTSIDE RECORDS SUMMARY | 2024-03-09 07:52 | External Medical Summary | Summary of Care ---
Author Name Unknown Organization [facility] Address [address] [facility] [place] [address] Phone [phone] Care Team Providers Care Radiophone Operator Name Role Phone Garrison Dean DO Primary Care Provider Reason for Visit * Reason Comments Physical-Exam Pt here for CPE, no voiced concerns Encounter Details Date Type Department Care Team (Late st Contact Info) Description 12/05/2023 8:00 AM EDT Office Visit 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); Asymptomatic stenosis of right carotid artery; Gastroesophageal reflux disease without esophagitis; Hypertensive kidney disease with stage 3b chronic kidney disease (HCC); S/P angioplasty with stent; Anxiety state; Hyperuricemia; Precordial pain; Chronic ischemic heart disease; Adjustment disorder with anxious mood; HTN, goal below 140/90; Dyslipidemia, goal LDL below 70 Allergies Active Allergy Reactions Criticality Noted Date Comments Amoxicillin-Pot Clavulanate Diarrhea 10/22/2010 GI intolerance Gemfibrozil 04/25/2006 Severe intestinal gas and cramping Niacin Er 11/22/2006 Gas, chest pain Ezetimibe Muscle pain 04/23/2010 myalgias Simvastatin 04/23/2010 documented as of this encounter (statuses as of 12/05/2023) Medications Medication Sig Dispensed Refills Start Date End Date Status Magnesium Gluconate 250 MG TABS Take 1 Tab by mouth every other day. 6 Active fluticasone (FLONASE) 50 MCG/ACT nasal sprayIndications: Chronic rhinitis Administer 2 Sprays into each nostril daily. 3 Bottle 3 0 Active Zinc 50 MG Oral Capsule Take 1 Capsule by mouth as needed (Seasonal). Active Albuterol Sulfate HFA 108 (90 Base) MCG/ACT Inhalation Aerosol SolutionIndicatio ns:Mild intermittent asthma with exacerbation Inhale by mouth 2 Puffs every 6 hours as needed for Cough, Shortness of Breath or Wheezing (chest tightness). 36 g 1 2 Active B-12 500 MCG Oral Tablet Take by mouth. When he remembers Active amLODIPine Besylate 2.5 MG Oral Tablet (Norvasc)Indicati ons:HTN, goal below 150/90 Take 1 Tablet by mouth in the morning. In the morning.. 90 Tablet 3 4 Active Metoprolol Succinate ER 25 MG Oral Tablet Extended Release 24 Hour (toPROL XL) Take 0.5 Tablets by mouth in the morning. 45 Tablet 3 4 Active Isosorbide Mononitrate ER 60 MG Oral Tablet Extended Release 24 Hour (Imdur)Indication s:HTN, goal below 140/90 Take 1 Tablet by mouth in the morning. 90 Tablet 3 4 Active Nitroglycerin 0.4 MG Sublingual Tablet Sublingual (Nitrostat)Indica tions:Precordial pain,Chronic ischemic heart disease Place 1 Tablet under the tongue every 5 minutes as needed (chest pain. Maximum 3 doses in 15 minutes.). 25 Tablet 3 4 Active Citalopram Hydrobromide 20 MG Oral Tablet (CeleXA)Indicatio ns:Adjustment disorder with anxious mood Take 1 Tablet by mouth in the morning. 90 Tablet 3 4 Active Aspirin 81 MG Oral Tablet Delayed ReleaseIndication s:Chronic ischemic heart disease,HTN, goal below 140/90 Take 1 Tablet by mouth in the morning. 90 Tablet 3 4 Active Rosuvastatin Calcium 5 MG Oral Tablet (Crestor) Take 1 Tablet by mouth in the morning. In the morning.. 90 Tablet 3 4 Active ASPIRIN 81 MG PO TBECIndications:C hronic ischemic heart disease,HTN, goal below 140/90 1 TABLET DAILY 34 11 8 12/05/19 24 Discontinued(Ref ill) ferrous sulfate (FEOSOL) 325 (65 FE) MG Tablet Take 1 Tablet by mouth every other day. 12/05/19 24 Discontinued Omeprazole 40 MG Oral Capsule Delayed Release (PriLOSEC)Indicat ions:Diaphragmati c hernia without obstruction and without gangrene Take 1 Cap by mouth daily. 90 Cap 3 1 12/05/19 24 Discontinued Clopidogrel Bisulfate 75 MG Oral Tablet (pLAVix)Indicatio ns:S/P angioplasty with stent,Chronic ischemic heart disease,HTN, goal below 140/90 take 1 tablet by mouth once daily 90 Tab 5 1 12/05/19 24 Discontinued Famotidine 10 MG Oral Tablet (Pepcid) Take by mouth 1 Tablet in the morning. 90 Tablet 3 2 12/05/19 24 Discontinued Nitroglycerin 0.4 MG Sublingual Tablet Sublingual (Nitrostat)Indica tions:Precordial pain,Chronic ischemic heart disease Place 1 Tablet under the tongue every 5 minutes as needed (chest pain. Maximum 3 doses in 15 minutes.). 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 34 Tablet 11 3 12/05/19 24 Discontinued(Med ication List Clean Up) Citalopram Hydrobromide 20 MG Oral Tablet (CeleXA)Indicatio ns:Adjustment disorder with anxious mood Take 1 Tablet by mouth in the morning. 90 Tablet 3 4 12/05/19 24 Discontinued(Ref ill) Rosuvastatin Calcium 5 MG Oral Tablet (Crestor) Take 1 Tablet by mouth in the morning. In the morning.. 4 12/05/19 24 Discontinued(Ref ill) documented as of this encounter (statuses as of 12/05/2023) Active Problems Problem Noted Date Diagnosed Date Mild intermittent asthma with exacerbation 11/30 Asymptomatic stenosis of right carotid artery Hypertensive kidney disease with stage 3b chronic kidney disease 05/03/2022 Chronic kidney disease, stage 3b 09/23/2020 Overview: Per CKD protocol Coronary artery disease of b ypass graft of [place] heart with stable angina pectoris 07/10/2020 Renal [...] as of this encounter (statuses as of 12/05/2023) Resolved Problems Problem Noted Date Diagnosed Date [...] for Patients with Cardiovascular Disease Project # [id number] GENOMICS CARDIO RESEARCH OTHER*[id number] 10/31/2006 06/22/2016 Overview: Renamed Per Clinical Trials Billing Project. Study Title: Genomic Markers for Patients with Cardiovascular Disease Project # [id number] ADVANCE DIRECTIVE INFORMATION 11/02/2004 12/19/2019 Overview: No, Advance Directive brochure given to patient. Historical. Encounter for long-term (cur rent) use of medications 03/23/2004 11/22/2006 Overview: ICD-10 update of inactive term LOC PRIM [id number] 03/27/200211/13 Dyslipidemia, goal to be determined 03/27/2002 05/01/2009 Overview: Per Lipid Taxonomy. PURE HYPERCHOLESTEROLEM 11/13 Urge incontinence 12/19/2019 Overview: Acute. documented as of this encounter (statuses as of 12/05/2023) Immunizations Name Administration Dates Next Due COVID-19 mRNA, LNP-s, No Pre serve, 2-Dose Series (TrustGo) 03/02/2021,08/08/2020,07/11/2020 COVID-19, LNP-s, No Preserve , Mauricio-sucrose, Ages 12+ (Pfizer) 09/02/2021 Covid-19, Mrna, Lnp-s, Pf, B ivalent, 30 Mcg, IM, 12 yrs and above (Pfizer) 03/09/2022 Pneumococcal Conjugate Vacc, 13 Valent (Prevnar) [...] Date Smoking Tobacco: Never Smokeless Tobacco: Never Tobacco Cessation:Counseling Given: Not Answered Alcohol Use Standard Drinks/Week Comments Yes 0 [...] on file documented as of this encounter Last Filed Vital Signs Vital Sign Reading Time Taken Comments Blood Pressure 116/66 12/05/2023 8:01 AM EDT Pulse 50 12/05/2023 8:01 AM EDT Temperature 36.2 C (97.1 F) 12/05/2023 8:01 AM ED T Respiratory Rate 16 12/05/2023 8:01 AM EDT Oxygen Saturation 97% 12/05/2023 8:01 AM EDT Inhaled Oxygen Concentration - - Weight 86.4 kg (190 lb 7 oz) 12/05/2023 8:01 AM EDT Height - - Body Mass Index 24.12 06/16/2023 1:00 PM EST documented in this encounter Progress Notes * Garrison Dean, - 12/05/2023 8:07 AM EDT Images from the original note were not included. 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) Stable shortness of breath Uses nitro about once per week chronically Which helps with some of the feeling but denies overt Chest pain Asymptomatic stenosis of right carotid artery Monitor, continue meds and f/u with Cards Gastroesophageal reflux disease without esophagitis - MAGNESIUM; Future Hypertensive kidney disease with stage 3b chronic kidney disease (HCC) - PHOSPHORUS - ALBUMIN / CREATININE RATIO, URINE; Future S/P angioplasty with stent - LIPID PANEL WITH DIRECT LDL IF TG IS HIGH; Future Anxiety state stable Hyperuricemia - URIC ACID; Future Precordial pain - Nitroglycerin 0.4 MG Sublingual Tablet Sublingual (Nitrostat); Place 1 Tablet under the tongue every 5 minutes as needed (chest pain. Maximum 3 doses in 15 minutes.). Chronic ischemic heart disease - Nitroglycerin 0.4 MG Sublingual Tablet Sublingual (Nitrostat); Place 1 Tablet under the tongue every 5 minutes as needed (chest pain. Maximum 3 doses in 15 minutes.). - Aspirin 81 MG Oral Tablet Delayed Release; Take 1 Tablet by mouth in the morning. Adjustment disorder with anxious mood - Citalopram Hydrobromide 20 MG Oral Tablet (CeleXA); Take 1 Tablet by mouth in the morning. HTN, goal below 140/90 - Aspirin 81 MG Oral Tablet Delayed Release; Take 1 Tablet by mouth in the morning. History of Present Illness Wesley Robles is a 88 year old male that presents for Physical-Exam (Pt here for CPE, no voiced concerns) Presents today in f/u Remains as active as he can tolerate Given his strength and occasional SOB He denies new issues, reports good compliance with medications Physical Exam Vitals: 12/05/23 0801 Temp: 36.2 C (97.1 F) Pulse: 50 Resp: 16 SpO2: 97% BP: 116/66 Physical Exam Vitals and nursing note reviewed. Constitutional: Appearance: Normal appearance. HENT: Head: Normocephalic and atraumatic. Right Ear: Tympanic membrane, ear canal and external ear normal. There is no impacted cerumen. Left Ear: Tympanic membrane, ear canal and external ear normal. There is no impacted cerumen. Nose: Nose normal. Mouth/Throat: Mouth: Mucous membranes are moist. Pharynx: Oropharynx is clear. Eyes: Extraocular Movements: Extraocular movements intact. Conjunctiva/sclera: Conjunctivae normal. Pupils: Pupils are equal, round, and reactive to light. Cardiovascular: Rate and Rhythm: Normal rate and regular rhythm. Heart sounds: Normal heart sounds. Pulmonary: Effort: Pulmonary effort is normal. Breath sounds: Normal breath sounds. Abdominal: General: Abdomen is flat. Palpations: Abdomen is soft. Musculoskeletal: General: Normal range of motion. Cervical back: Normal range of motion and neck supple. Lymphadenopathy: Cervical: No cervical adenopathy. Skin: General: Skin is warm and dry. Neurological: General: No focal deficit present. Mental Status: He is alert and oriented to person, place, and time. Wrap-Up Follow-up: Return in about 6 months (around 06/06/2024). | Check-out note: Every 8-10 months with il Labs prior Time: Total time today was 42 minutes excluding any time spent in the performance of separately billed services. documented in this encounter Nursing Notes * Joann Sandoval LPN - 12/05/2023 8:04 AM EDT The patient has been properly identified by confirmation of name and date of . Chief Complaint Patient presents with Physical-Exam Pt here for CPE, no voiced concerns documented in this encounter Plan of Treatment Upcoming Encounters Date Type Department Care Team (Late st Contact Info) Description 05/08/2024 8:00 AM EST Office Visit Nephrology, [facility] [address] [place] [phone] Megan Gardner MD [address] [facility] [place] [address] 06/07/2024 9:40 AM EST Office Visit [facility] ([place], [place]) [address] [place] [address] Grecia James CRNP [address] [place] [id number] 12/06/2024 8:20 AM EDT Office Visit [facility] ([place], [place]) [address] [place] [address] Garrison Dean DO [address] [place] [address] Scheduled Orders Name Type Priority Associated Diagnoses Orde r Schedule PHOSPHORUS Lab Routine Hypertensive kidney disease with stage 3b chronic kidney disease (HCC) Ordered: 12/05/2023 CBC WITH WBC DIFFERENTIAL Lab Routine HTN, goal below 150/90 Expected: 06/02/2024 (Approximate), Expires: 12/04/2024 COMPREHENSIVE METABOLIC PANEL Lab Routine HTN, goal below 150/90 Expected: 06/02/2024 (Approximate), Expires: 12/04/2024 ALBUMIN / CREATININE RATIO, URINE Lab Routine Hypertensive kidney disease with stage 3b chronic kidney disease (HCC) Expected: 06/02/2024 (Approximate), Expires: 12/04/2024 LIPID PANEL WITH DIRECT LDL IF TG IS HIGH Lab Routine S/P angioplasty with stent Expected: 06/02/2024 (Approximate), Expires: 12/04/2024 URIC ACID Lab Routine Hyperuricemia Expected: 06/02/2024 (Approximate), Expires: 12/04/2024 MAGNESIUM Lab Routine Gastroesophageal reflux disease without esophagitis Expected: 06/02/2024 (Approximate), Expires: 12/04/2024 Health Maintenance Due Date Last Done Comments COVID-19 Vaccine ( season) 2023 03/09/2022, 09/02/2021, 03/02/2021, Additional history exists *SPIROMETRY ONCE FOR ASTHMA-ADULT 11/27/2023 CKD PHOS USE SMARTSET 80631 12/01/202311/13, 07/14/2021, 02/17/2021, Additional history exists Depression Screening 12/01/2023 11/30/2022 Influenza Vaccine (FLU shot) (#1) 2024 02/25/2023, 02/22/2022, 02/17/2021, Additional history exists Albumin/Creatinine Ratio 10/13/2024 024, 11/30/2022, 05/14/2022, Additional history exists CKD HGB USE SMARTSET 57403 10/13/202410/13, 11/30/2022, 11/30/2022, Additional history exists DTaP,Tdap,and [...] Not on filedocumented as of this encounter Visit Diagnoses Diagnosis HTN, goal below 150/90- Primary 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) Asymptomatic stenosis of right carotid artery Gastroesophageal reflux disease without esophagitis Esophageal reflux Hypertensive kidney disease with stage 3b chronic kidney disease (HCC) S/P angioplasty with stent Postsurgical percutaneous transluminal coronary angioplasty status Anxiety state Anxiety state, unspecified Hyperuricemia Other abnormal blood chemistry Precordial pain Chronic ischemic heart disease Chronic ischemic heart disease, unspecified Adjustment disorder with anxious mood Adjustment disorder with anxiety HTN, goal below 140/90 Unspecified essential hypertension Dyslipidemia, goal LDL below 70 Other and unspecified hyperlipidemia documented in this encounter Advance Directives * Full Code [...] Power of Attor kamilla? No Care Teams Radiophone Operator Relationship Specialty Start Date End Date Garrison Dean DO [address] [place] [id number] PCP - General Family Medicine 06/14/19 documented as of this encounter"
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
--- OUTSIDE RECORDS SUMMARY | 2024-03-09 07:52 | External Medical Summary | Summary of Care ---
Author Name Unknown Organization [facility] Address [address] [facility] [address] Phone [phone] Care Team Providers Care Records Management Coordinator Name Role Phone Garrison Dean DO Primary Care Provider Reason for Visit * Reason Comments Acute Tuesday, cough, fever , sorethroat, laryngitis, body aches, chills. Encounter Details Date Type Department Care Team (Late st Contact Info) Description 01/17/2024 3:00 PM EDT Office Visit [facility] [address] [place] [address] Sandra Garner CRNP 132 [facility] [place] [address] URI with cough and congestion*; Mild intermittent [...] artery disease of b ypass graft of [place] heart with stable angina pectoris 07/10/2020 Renal [...] for Patients with Cardiovascular Disease Project # [id number] GENOMICS CARDIO RESEARCH OTHER*[id number] 10/31/2006 06/22/2016 Overview: Renamed Per Clinical Trials Billing Project. Study Title: Genomic Markers for Patients with Cardiovascular Disease Project # [id number] ADVANCE DIRECTIVE INFORMATION 11/02/2004 12/19/2019 Overview: No, Advance Directive brochure given to patient. Historical. Encounter for long-term (cur rent) use of medications 03/23/2004 11/22/2006 Overview: ICD-10 update of inactive term LOC PRIM [id number] 03/27/200211/13 Dyslipidemia, goal to be determined 03/27/2002 05/01/2009 Overview: Per Lipid Taxonomy. PURE HYPERCHOLESTEROLEM 11/13 Urge incontinence 12/19/2019 Overview: Acute. 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 Park REPAIR OF HYDROCELE 06/18/2011 [...] COVID-19 mRNA, LNP-s, No Preserve, 2-Dose Series ([employer]) 03/02/2021 COVID-19, LNP-s, No Preserve, Mauricio-sucrose, Ages [...] spent by another provider/QHP. Katarina, MSN, JONO [facility] Medicine documented in this encounter Plan of Treatment Upcoming Encounters Date Type Department Care Team (Late st Contact Info) Description 05/08/2024 8:00 AM EST Office Visit Nephrology, [facility] [address] [place] [address] Megan Gardner MD [address] [facility] [place] [address] 06/07/2024 9:40 AM EST Office Visit [facility] [address] [place] [address] Grecia James CRNP [address] [place] [address] 12/06/2024 8:20 AM EDT Office Visit [facility] [address] [place] [address] Garrison Dean DO [address] [place] [address] Scheduled Orders Name Type Priority Associated Diagnoses Orde r Schedule INFLUENZA A/B RSV SARS-COV2,PCR Lab Routine URI with cough and congestion Expected: 01/17/2024 (Approximate), Expires: 01/16/2025 Health Maintenance Due Date Last Done Comments Adult Wellness Visit 2000 CKD PHOS USE SMARTSET 65113 12/01/202311/13, 07/14/2021, 02/17/2021, Additional history exists Depression Screening 12/01/2023 11/30/2022 COVID-19 Vaccine ( season) 2024 03/09/2022, 09/02/2021, 03/02/2021, Additional history exists Influenza Vaccine (FLU shot) (#1) 2024 02/25/2023, 02/22/2022, 02/17/2021, Additional history exists Albumin/Creatinine Ratio 10/13/2024 024, 11/30/2022, 05/14/2022, Additional history exists CKD HGB USE SMARTSET 14420 10/13/202410/13, 11/30/2022, 11/30/2022, Additional history exists DTap/Tdap [...] Power of Attor kamilla? No Care Teams Records Management Coordinator Relationship Specialty Start Date End Date Garrison Dean DO [address] [place] [address] PCP - General Family Medicine 06/14/19 documented as of this encounter"
--- OUTSIDE RECORDS SUMMARY | 2024-03-09 07:52 | External Medical Summary | Summary of Care ---
Author Name Unknown Organization [facility] Address [address] [facility] [address] Phone [phone] Care Team Providers Care Dermatology Nurse Practitioner Name Role Phone Garrison Dean DO Primary Care Provider Reason for Visit * Reason Comments Acute Tuesday, cough, fever , sorethroat, laryngitis, body aches, chills. Encounter Details Date Type Department Care Team (Late st Contact Info) Description 01/17/2024 3:00 PM EDT Office Visit 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 Study Title: Genomic Markers for Patients with Cardiovascular Disease Project # [id number] ADVANCE DIRECTIVE INFORMATION 11/02/2004 12/19/2019 Overview: No, Advance Directive brochure given to patient. Historical. Encounter for long-term (cur rent) use of medications 03/23/2004 11/22/2006 Overview: ICD-10 update of inactive term LOC PRIM [id number] 03/27/200211/13 Dyslipidemia, goal to be determined 03/27/2002 05/01/2009 Overview: Per Lipid Taxonomy. PURE HYPERCHOLESTEROLEM 11/13 Urge incontinence 12/19/2019 Overview: Acute. documented as of this encounter (statuses as of 01/17/2024) Immunizations Name Administration Dates Next Due COVID-19 mRNA, LNP-s, No Pre serve, 2-Dose Series ([employer]) 03/02/2021,08/08/2020,07/11/2020 COVID-19, LNP-s, No Preserve , Mauricio-sucrose, Ages 12+ (Pfizer) 09/02/2021 Covid-19, Mrna, Lnp-s, Pf, B ivalent, 30 Mcg, IM, 12 yrs and above (webme) 03/09/2022 Pneumococcal Conjugate Vacc, 13 Valent (Prevnar) [...] 36.9 C (98.4 F) 01/17/2024 2:46 PM ED T Respiratory Rate - - Oxygen Saturation 95% 01/17/2024 2:46 PM EDT Inhaled Oxygen Concentration - - Weight - - Height - - Body Mass Index - - documented in this encounter Progress Notes * Sandra Garner CRNP - 01/17/2024 2:55 PM EDT I Family Medicine Visit CC: Chief Complaint Patient [...] on file Occupational History 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 Park REPAIR OF HYDROCELE [...] COVID-19 mRNA, LNP-s, No Preserve, 2-Dose Series (Pfizer) 03/02/2021 COVID-19, LNP-s, No Preserve, Mauricio-sucrose, Ages [...] or time spent by another provider/QHP. Katarina, SANDIE, JONO [facility] Medicine documented in this encounter Plan of Treatment Upcoming Encounters Date Type Department Care Team (Late st Contact Info) Description 05/08/2024 8:00 AM EST Office Visit Nephrology, [facility] [address] [facility] [address] [place] [address] Megan Gardner MD 200 [facility] [place] [address] 06/07/2024 9:40 AM EST Office Visit [facility] [address] [place] [address] Grecia James CRNP [address] [place] [address] 12/06/2024 8:20 AM EDT Office Visit [facility] [address] [place] [address] Garrison Dean DO [address] [place] [address] Scheduled Orders Name Type Priority Associated Diagnoses Orde r Schedule INFLUENZA A/B RSV SARS-COV2,PCR Lab Routine URI with cough and congestion Expected: 01/17/2024 (Approximate), Expires: 01/16/2025 Health Maintenance Due Date Last Done Comments Adult Wellness Visit 2000 CKD PHOS USE SMARTSET 93951 12/01/2023 07/12/2022, 07/14/2021, 02/17/2021, Additional history exists Depression Screening 12/01/2023 11/30/2022 COVID-19 Vaccine ( season) 2024 03/09/2022, 09/02/2021, 03/02/2021, Additional history exists Influenza Vaccine (FLU shot) (#1) 2024 02/25/2023, 02/22/2022, 02/17/2021, Additional history exists Albumin/Creatinine Ratio 10/13/2024 024, 11/30/2022, 05/14/2022, Additional history exists CKD HGB USE SMARTSET 98131 10/13/202410/13, 11/30/2022, 11/30/2022, Additional history exists DTap/Tdap [...] Power of Attor kamilla? No Care Teams Dermatology Nurse Practitioner Relationship Specialty Start Date End Date Garrison Dean DO [address] [place] [address] PCP - General Family Medicine 06/14/19 documented as of this encounter"
--- OUTSIDE RECORDS SUMMARY | 2024-03-09 07:52 | External Medical Summary ---
Author Name Unknown Address Unknown Organization K0G:[facility] [address] [facility] [place] [address] Laboratory Report Ordering Provider Test Date Status HENRRY THAPA 01/17/2024 15:10:44 Final Observation Date Value Abnormality Reference (Units ) Status SARS Coronavirus 2 01/17/2024 15:10:44 Positive Abnormal N egative Final SARS-CoV2 Coronavirus RNA de tected by PCR (amplified probe). Test results reported to [facility].
This express test was developed and its performance characteristics determined by [facility]. It has not been cleared or approved by the U.S. Food and Drug Administration (FDA). FDA does not require this test to go thru premarket FDA review. This test is used for clinical purposes. It should not be regarded as investigational or for research. This laboratory is certified under the Clinical Laboratory Improvement Amendments (CLIA) as qualified to perform high complexity clinical laboratory testing.

This test is a nucleic acid amplification test (NAAT), a reverse transcriptase polymerase chain reaction (RT-PCR) test, or a Centers for Disease Control-acceptable equivalent. The test is performed in a high complexity Clinical Laboratory Improvement Amendments-(CLIA) certified laboratory. The test is acceptable for SARS-CoV-2 diagnosis, surveillance, and travel within the [facility] and to most countries. Please check with local testing authorities about requirements before travel.

The validation of bronchial specimens, tracheal aspirates, and sputum for this assay was developed and performance characteristics determined by [facility]. The validation of alternate specimen types has not been cleared or approved by the U.S. Food and Drug Administration (FDA). It has been determined that such clearance is not necessary. Influenza virus A RNA [Prese nce] in Specimen by [facility] with probe detection 01/17/2024 15:10:44 Negative Negative Final No Influenza A RNA detected by PCR (amplified probe) Influenza virus B RNA [Prese nce] in Specimen by [facility] with probe detection 01/17/2024 15:10:44 Negative Negative Final No Influenza B RNA detected by PCR (amplified probe) Respiratory syncytial virus RNA [Identifier] in Specimen by EDER with probe detection 01/17/2024 15:10:44 Negative Negative Final No Respiratory Syncytial Vir us RNA detected by PCR (amplified probe) Performing Location LABORATORY [facility] [address] [place] [address]
--- OUTSIDE RECORDS SUMMARY | 2024-03-09 07:52 | External Medical Summary | Summary of Care ---
Author Name Unknown Organization [facility] Address [address] [place] [address] Phone [phone] Care Team Providers Care Cardiac Cath Lab Technologist Name Role Phone Garrison Deanoliva Primary Care Provider Reason for Visit * Reason Onset Date Comments Test Results 10/17/2023 Encounter Details Date Type Department Care Team (Late st Contact Info) Description 10/17/2023 Telephone Nephrology, [facility] Alicia 200 [facility] [place] [address] ZemaitisMichelle PA-C [address] [place] [address] Test Results Allergies Active Allergy Reactions Criticality Noted Date Comments Amoxicillin-Pot Clavulanate Diarrhea 10/22/2010 GI intolerance Gemfibrozil 04/25/2006 Severe intestinal gas and cramping Niacin Er 11/22/2006 Gas, chest pain Ezetimibe Muscle pain 04/23/2010 myalgias Simvastatin 04/23/2010 documented as of this encounter (statuses as of 10/17/2023) Medications Medication Sig Dispensed Refills Start Date End Date Status ASPIRIN 81 MG PO TBECIndications: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 ischemic heart disease,HTN, goal below 140/90 [...] :Coronary artery disease of bypass graft of [place] heart with stable angina pectoris (HCC),Dyslipidemia, goal [...] as of this encounter (statuses as of 10/17/2023) Active Problems Problem Noted Date Diagnosed Date Mild intermittent asthma with exacerbation 11/30 Asymptomatic stenosis of right carotid artery Hypertensive kidney disease with stage 3b chronic kidney disease 05/03/2022 Chronic kidney disease, stage 3b 09/23/2020 Overview: Per CKD protocol Coronary artery disease of b ypass graft of [place] heart with stable angina pectoris 07/10/2020 Renal [...] as of this encounter (statuses as of 10/17/2023) Resolved Problems Problem Noted Date Diagnosed Date [...] for Patients with Cardiovascular Disease Project # [id number] GENOMICS CARDIO RESEARCH OTHER*[id number] 10/31/2006 06/22/2016 Overview: Renamed Per Clinical Trials Billing Project. Study Title: Genomic Markers for Patients with Cardiovascular Disease Project # [id number] ADVANCE DIRECTIVE INFORMATION 11/02/2004 12/19/2019 Overview: No, Advance Directive brochure given to patient. Historical. Encounter for long-term (cur rent) use of medications 03/23/2004 11/22/2006 Overview: ICD-10 update of inactive term LOC PRIM [id number] 03/27/200211/13 Dyslipidemia, goal to be determined 03/27/2002 05/01/2009 Overview: Per Lipid Taxonomy. PURE HYPERCHOLESTEROLEM 11/13 Urge incontinence 12/19/2019 Overview: Acute. documented as of this encounter (statuses as of 10/17/2023) Immunizations Name Administration Dates Next Due COVID-19 mRNA, LNP-s, No Pre serve, 2-Dose Series ([employer]) 03/02/2021,08/08/2020,07/11/2020 COVID-19, LNP-s, No Preserve , Mauricio-sucrose, Ages 12+ (Pfizer) 09/02/2021 Covid-19, Mrna, Lnp-s, Pf, B ivalent, 30 Mcg, IM, 12 yrs and above ([employer]) 03/09/2022 Pneumococcal Conjugate Vacc, 13 Valent (Prevnar) [...] encounter Miscellaneous Notes * Telephone Encounter - Tita Mayers RN - 10/17/2023 11:47 AM EDT TE with pt regarding lab results. He is not having symptoms of UTI. He is aware to continue to drink plenty of fluids . No further orders at this time. * Telephone Encounter - Tita Mayers RN - 10/17/2023 11:46 AM EDT ----- Message from Michelle Rodriguez sent at 10/14/2023 12:54 PM EDT ----- Renal fuction stable Patient with chronically inflamed urine and hematuria. Please see if patient with overt UTI symptoms:dysuria, frequency etc. IF this is the case would recommend urine culture carlie-evaluation documented in this encounter Plan of Treatment Upcoming Encounters Date Type Department Care Team (Late st Contact Info) Description 12/05/2023 8:00 AM EDT Office Visit Family Practice [facility] [address] [place] [address] Garrison Dean DO [address] [place] [address] 05/08/2024 8:00 AM EST Office Visit Nephrology, [facility] [address] [place] [address] Megan Gardner MD [address] [facility] [address] [place] [address] Health Maintenance Due Date Last Done Comments COVID-19 Vaccine ( season) 2023 03/09/2022, 09/02/2021, 03/02/2021, Additional history exists CKD PHOS USE SMARTSET 06107 12/01/202311/13, 07/14/2021, 02/17/2021, Additional history exists Depression Screening 12/01/2023 11/30/2022 Albumin/Creatinine Ratio 10/13/2024 024, 11/30/2022, 05/14/2022, Additional history exists CKD HGB USE SMARTSET 78279 10/13/202410/13, 11/30/2022, 11/30/2022, Additional history exists DTaP,Tdap,and [...] Power of Attor kamilla? No Care Teams Cardiac Cath Lab Technologist Relationship Specialty Start Date End Date Garrison Dean DO [address] [place] [address] PCP - General Family Medicine 06/14/19 documented as of this encounter
--- OUTSIDE RECORDS SUMMARY | 2024-03-09 07:53 | External Medical Summary | Summary of Care ---
Author Name Unknown Organization [facility] Address [address] [place] [address] Phone [phone] Care Team Providers Care Director Data Analytics Name Role Phone Jermaine Garrison Sandsoliva Primary Care Provider Reason for Visit * Reason Onset Date Comments Test Results 10/14/2023 Encounter Details Date Type Department Care Team (Late st Contact Info) Description 10/14/2023 Telephone Nephrology, [place] [facility]ia [address] [facility] [place] [address] ZemaitisMichelle PA-C [address] [place] [address] Test Results Allergies Active Allergy Reactions Criticality Noted Date Comments Amoxicillin-Pot Clavulanate Diarrhea 10/22/2010 GI intolerance Gemfibrozil 04/25/2006 Severe intestinal gas and cramping Niacin Er 11/22/2006 Gas, chest pain Ezetimibe Muscle pain 04/23/2010 myalgias Simvastatin 04/23/2010 documented as of this encounter (statuses as of 10/14/2023) Medications Medication Sig Dispensed Refills Start Date End Date Status ASPIRIN 81 MG PO TBECIndications: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 ischemic 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 disease,HTN, goal below 140/90 [...] :Coronary artery disease of bypass graft of [place] heart with stable angina pectoris (HCC),Dyslipidemia, goal [...] as of this encounter (statuses as of 10/14/2023) Active Problems Problem Noted Date Diagnosed Date Mild intermittent asthma with exacerbation 11/30 Asymptomatic stenosis of right carotid artery Hypertensive kidney disease with stage 3b chronic kidney disease 05/03/2022 Chronic kidney disease, stage 3b 09/23/2020 Overview: Per CKD protocol Coronary artery disease of b ypass graft of [place] heart with stable angina pectoris 07/10/2020 Renal [...] as of this encounter (statuses as of 10/14/2023) Resolved Problems Problem Noted Date Diagnosed Date [...] for Patients with Cardiovascular Disease Project # [id number] GENOMICS CARDIO RESEARCH OTHER*[id number] 10/31/2006 06/22/2016 Overview: Renamed Per Clinical Trials Billing Project. Study Title: Genomic Markers for Patients with Cardiovascular Disease Project # [id number] ADVANCE DIRECTIVE INFORMATION 11/02/2004 12/19/2019 Overview: No, Advance Directive brochure given to patient. Historical. Encounter for long-term (cur rent) use of medications 03/23/2004 11/22/2006 Overview: ICD-10 update of inactive term LOC PRIM [id number] 03/27/200211/13 Dyslipidemia, goal to be determined 03/27/2002 05/01/2009 Overview: Per Lipid Taxonomy. PURE HYPERCHOLESTEROLEM 11/13 Urge incontinence 12/19/2019 Overview: Acute. documented as of this encounter (statuses as of 10/14/2023) Immunizations Name Administration Dates Next Due COVID-19 mRNA, LNP-s, No Pre serve, 2-Dose Series ([employer]) 03/02/2021,08/08/2020,07/11/2020 COVID-19, LNP-s, No Preserve , Mauricio-sucrose, Ages 12+ (Pfizer) 09/02/2021 Covid-19, Mrna, Lnp-s, Pf, B ivalent, 30 Mcg, IM, 12 yrs and above ([employer]) 03/09/2022 Pneumococcal Conjugate Vacc, 13 Valent (Prevnar) [...] Telephone Encounter - Tita Mayers RN - 10/14/2023 1:37 PM EDT LMAM and call back number. * Telephone Encounter - Tita Mayers RN - 10/14/2023 1:21 PM EDT ----- Message from Michelle Rodriguez sent [...] 12/05/2023 8:00 AM EDT Office Visit Family [facility] [address] [place] [address] Garrison Dean DO [address] [place] [address] 05/08/2024 8:00 AM EST Office Visit Nephrology, [facility] [address] [place] [address] Megan Gardner MD [address] [place] [address] Health Maintenance Due Date Last Done Comments COVID-19 Vaccine ( season) 2023 03/09/2022, 09/02/2021, 03/02/2021, Additional history exists Albumin/Creatinine Ratio 12/01/2023 023, 05/14/2022, 02/17/2021, Additional history exists CKD PHOS USE SMARTSET 48798 12/01/202311/13, 07/14/2021, 02/17/2021, Additional history exists Depression Screening 12/01/2023 11/30/2022 CKD HGB USE SMARTSET 28274 10/13/202410/13, 11/30/2022, 11/30/2022, Additional history exists DTaP,Tdap,and [...] of Attor kamilla? No Care Teams Director Data Analytics Relationship Specialty Start Date End Date Garrison Dean DO [address] [place] [address] PCP - General Family Medicine 06/14/19 documented as of this encounter
--- OUTSIDE RECORDS SUMMARY | 2024-03-09 07:53 | External Medical Summary ---
Author Name Unknown Address Unknown Organization K01:[facility] - [address] [place] [address] Laboratory Report Ordering Provider Test Date Status JC GALICIA 10/14/2023 09:01:12 Final Observation Date Value Abnormality Reference (Units ) Status Magnesium 10/14/2023 09:01:12 2.3 1.5-2.6 (m g/dL) Final Performing Location [facility] - [address] [place] [address]
--- OUTSIDE RECORDS SUMMARY | 2024-03-09 07:53 | External Medical Summary ---
Author Name Unknown Address Unknown Organization K01:[facility] [place] [facility] [address] [place] [address] Laboratory Report Ordering Provider Test Date Status GRAYSONALFREDITOKOKI 10/14/2023 09:01:12 Final Deficient: <20 ng/mL
Ins ufficient: 20-29 ng/mL
Recommended/Optimum:30-50 ng/mL

Vitamin D intoxication is rare. If suspicious of Vitamin D toxicity, evaluation of serum Calcium and PTH is recommended. Observation Date Value Abnormality Reference (Units ) Status 25-OH Vitamin D total 10/14/2023 09:01:12 33 >19 (ng/mL) Final Performing Location [facility] - [address] [place] [address]
--- OUTSIDE RECORDS SUMMARY | 2024-03-09 07:53 | External Medical Summary ---
Author Name Unknown Address Unknown Organization K0G[facility] [address] [place] [address] Laboratory Report Ordering Provider Test Date Status ALFREDITO GALICIAITIS 10/14/2023 09:01:12 Final Observation Date Value Abnormality Reference (Units ) Status Hemoglobin 10/14/2023 09:01:12 16.0 14.0-16.8 (g/dL) Final Performing Location LABORATORY [facility] [place] [facility] [address] [place] [address]
--- OUTSIDE RECORDS SUMMARY | 2024-03-09 07:53 | External Medical Summary | Summary of Care ---
Author Name Unknown Organization [facility] Address [address] [place] [facility] [place] [address] Phone [phone] Care Team Providers Care Advertising Executive Name Role Phone Jermaine Garrison Sandsoliva Primary Care Provider Reason for Visit * Reason Onset Date Comments Medication Refill 10/04/2023 Encounter Details Date Type Department Care Team (Late st Contact Info) Description 10/04/2023 Refill Cardiology, [facility] [address] [place] [address] Anyi Muniz PA-C [address] [place] [address] HTN, goal below 140/90 Allergies Active Allergy Reactions Criticality Noted Date Comments Amoxicillin-Pot Clavulanate Diarrhea 10/22/2010 GI intolerance Gemfibrozil 04/25/2006 Severe intestinal gas and cramping Niacin Er 11/22/2006 Gas, chest pain Ezetimibe Muscle pain 04/23/2010 myalgias Simvastatin 04/23/2010 documented as of this encounter (statuses as of 10/04/2023) Medications Medication Sig Dispensed Refills Start Date End Date Status ASPIRIN 81 MG PO TBECIndications:Ch ronic ischemic heart disease,HTN, goal below 140/90 1 [...] Omeprazole 40 MG Oral Capsule Delayed Release (PriLOSEC)Indicati ons:Diaphragmatic hernia without obstruction and without gangrene Take 1 Cap by mouth daily. 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 Study Title: Genomic Markers for Patients with Cardiovascular Disease Project # [id number] GENOMICS CARDIO RESEARCH OTHER*[id number] 10/31/2006 06/22/2016 Overview: Renamed Per Clinical Trials Billing Project. Study Title: Genomic Markers for Patients with Cardiovascular Disease Project # [id number] ADVANCE DIRECTIVE INFORMATION 11/02/2004 12/19/2019 Overview: No, Advance Directive brochure given to patient. Historical. Encounter for long-term (cur rent) use of medications 03/23/2004 11/22/2006 Overview: ICD-10 update of inactive term LOC PRIM [id number] 03/27/200211/13 Dyslipidemia, goal to be determined 03/27/2002 05/01/2009 Overview: Per Lipid Taxonomy. PURE HYPERCHOLESTEROLEM 11/13 Urge incontinence 12/19/2019 Overview: Acute. documented as of this encounter (statuses as of 10/04/2023) Immunizations Name Administration Dates Next Due COVID-19 mRNA, LNP-s, No Pre serve, 2-Dose Series ([employer]) 03/02/2021,08/08/2020,07/11/2020 COVID-19, LNP-s, No Preserve , Mauricio-sucrose, [...] encounter Miscellaneous Notes * Telephone Encounter - Anyi Muniz PA-C - 10/04/2023 3:14 PM EDT Signed Prescriptions: Disp Refills Isosorbide Mononitrate ER 60 MG Oral Table*90 Tab*3 Sig: Take 1 Tablet by mouth in the morning. Authorizing Provider: ANYI MUNIZ * Telephone Encounter - Naila Zaragoza LPN - 10/04/2023 3:13 PM EDTPending Prescriptions: Disp Refills Isosorbide Mononitrate ER 60 MG Oral Table*90 Tab*3 Sig: Take 1 Tablet by mouth in the morning. * Telephone Encounter - Yara Macias OSA - 10/04/2023 2:27 PM EDT Did you pend patient's preferred pharmacy and medication before forwarding?yes Pharmacy: [facility] [id number] Pending Prescriptions: Disp Refills Isosorbide Mononitrate ER 60 MG Oral Tabl*90 Tab*3 Sig: Take 1 Tablet by mouth in the morning. Last Visit: 07/28/2023 (in office), Visit date not found (telemedicine) Next Visit: Visit date not found If no future appointments scheduled, and last appointment is greater than a year ago, please schedule patient for a follow-up appointment Last date the medication was ordered: 08.06.22 Is this request for a controlled substance?No Urine Drug Screen:No results found for this or any previous visit. Patient Phone Numbers Labs: Lab Results Component Value Date/Time CREAT 1.7 (H) 01/13/2023 08:47 AM CREAT 1.6 (H) 03/27/2020 09:55 AM CREAT 1.2 04/15/1996 04:00 AM POTASSIUM 4.4 01/13/2023 08:47 AM POTASSIUM 4.5 03/27/2020 09:55 AM POTASSIUM 4.0 04/15/1996 04:00 AM TSH 3.17 10/25/2011 10:42 AM LDLCALC 110 01/13/2023 08:47 AM LDLCALC 146 (H) 09/23/2014 10:12 AM LDLCALC 100. 08/30/1996 09:05 AM LDLDIRECT NOT APPLICABLE 09/23/2014 10:12 AM LDLDIRECT 186 (H) 09/19/2008 09:17 AM ALT 37 01/13/2023 08:47 AM ALT 18 12/14/2016 10:29 AM ALT 19 07/02/1996 08:55 AM HGBA1C 6.1 09/23/2014 10:12 AM documented in this encounter Plan of Treatment Upcoming Encounters Date Type Department Care Team (Late st Contact Info) Description 10/14/2023 8:30 AM EDT Cardiac Studies Cardiac Studies, [facility] [address] [place] [address] 12/05/2023 8:00 AM EDT Office Visit Family Practice [facility] [address] [place] [address] Garrison Dean DO [address] [place] [address] 05/08/2024 8:00 AM EST Office Visit Nephrology, [facility] [address] [place], [place] [address] Megan Gardner MD [address] [place] [address] Health Maintenance Due Date Last Done Comments COVID-19 Vaccine ( season) 2023 03/09/2022, 09/02/2021, 03/02/2021, Additional history exists Albumin/Creatinine Ratio 12/01/2023 023, 05/14/2022, 02/17/2021, Additional history exists CKD HGB USE SMARTSET 72234 12/01/202311/30, 11/30/2022, 05/14/2022, Additional history exists CKD PHOS USE SMARTSET 02213 12/01/202311/13, 07/14/2021, 02/17/2021, Additional history exists Depression Screening 12/01/2023 11/30/2022 DTaP,Tdap,and Td Vaccines (2 - Td or [...] encounter Visit Diagnoses Diagnosis HTN, goal below 140/90 Unspecified essential hypertension documented in this encounter Advance Directives * [...] Power of Attor kamilla? No Care Teams Advertising Executive Relationship Specialty Start Date End Date Garrison Dean DO [address] [place] [address] PCP - General Family Medicine 06/14/19 documented as of this encounter
--- OUTSIDE RECORDS SUMMARY | 2024-03-09 07:53 | External Medical Summary ---
Author Name Unknown Address Unknown Organization K0G:[facility] [place] [facility] - [address] [place] [address] Laboratory Report Ordering Provider Test Date Status JC GALICIA 10/14/2023 09:01:12 Final Observation Date Value Abnormality Reference (Units ) Status BUN 10/14/2023 09:01:12 25 Above high normal 6-20 (mg/dL) Final Creatinine 10/14/2023 09:01:12 1.7 Above high normal 0.6-1.2 (mg/dL) Final Glomerular filtration rate/1.73 sq M.predicted [Volume Rate/Area] in Serum, Plasma or Blood by Creatinine-based formula (CKD-EPI) 10/14/2023 09:01:12 38 Below low normal >=60 (mL/min) Final eGFR is calculated based on the CKD-EPI 2020 equation Sodium 10/14/2023 09:01:12 139 135-146 (m mol/L) Final Potassium 10/14/2023 09:01:12 4.6 3.5-5.1 (m mol/L) Final Cl 10/14/2023 09:01:12 101 98-107 (mm ol/L) Final CO2 10/14/2023 09:01:12 25 22-32 (mmo l/L) Final Anion gap 10/14/2023 09:01:12 13 7-15 (mmol /L) Final Glucose 10/14/2023 09:01:12 97 70-120 (mg /dL) Final Calcium 10/14/2023 09:01:12 10.2 8.4-10.2 ( mg/dL) Final Performing Location [facility] [place] [facility] 0 - [address] [place] [address]
--- OUTSIDE RECORDS SUMMARY | 2024-03-09 07:53 | External Medical Summary ---
Author Name Unknown Address Unknown Organization K01:[facility] [place] - [address] [place] [address] Laboratory Report Ordering Provider Test Date Status JC GALICIA 10/14/2023 09:11:16 Final Normal: <30 mg/g creatinine< br/>High: 30-300 mg/g creatinine
Very High: >300 mg/g creatinine
Nephrotic: >2200 mg/g creatinine Observation Date Value Abnormality Reference (Units ) Status Albumin, Urine 10/14/2023 09:11:16 5.61 (mg/dL) Final Creatinine, Urine 10/14/2023 09:11:16 100 (mg/dL) Final Albumin/Creatinine [Mass Ratio] in Urine 10/14/2023 09:11:16 56 Above high normal <30 (mg/g Creat) Final Performing Location [facility] - [address] [place] [address]
--- OUTSIDE RECORDS SUMMARY | 2024-03-09 07:53 | External Medical Summary ---
Author Name Unknown Address Unknown Organization [id number]:[facility] [place] - [address] [place] [address] Laboratory Report Ordering Provider Test Date Status JC GALICIA 10/14/2023 09:01:12 Final Observation Date Value Abnormality Reference (Units ) Status Uric Acid 10/14/2023 09:01:12 7.2 Above high normal 3. 4-7.0 (mg/dL) Final Performing Location [facility] C - [address] [place] [address]
--- OUTSIDE RECORDS SUMMARY | 2024-03-09 07:53 | External Medical Summary ---
Author Name Unknown Address Unknown Organization K0G:[facility] [place] [facility] - [address] [place] [address] Laboratory Report Ordering Provider Test Date Status JC GALICIA 10/14/2023 09:11:16 Final Observation Date Value Abnormality Reference (Units ) Status Color of Urine by Auto 10/14/2023 09:11:16 Yellow Light Yellow, Yellow, Dark Yellow Final Clarity, Urine 10/14/2023 09:11:16 Cloudy Abnormal Clear Final Glucose [Mass/volume] in Urine by Automated test strip 10/14/2023 09:11:16 Negative Negative (mg/dL) Final Bilirubin.total [Presence] in Urine by Automated test strip 10/14/2023 09:11:16 Negative Negative Final Ketones [Mass/volume] in Urine by Automated test strip 10/14/2023 09:11:16 Negative Negative (mg/dL) Final Specific gravity, Urine 10/14/2023 09:11:16 1.025 1.003-1.030 Final Hemoglobin [Presence] in Urine by Automated test strip 10/14/2023 09:11:16 Trace Abnormal Negative Final pH, Urine 10/14/2023 09:11:16 6.0 5.0-7.5 (Units) Final Protein [Mass/volume] in Urine by Automated test strip 10/14/2023 09:11:16 Negative Negative (mg/dL) Final Urobilinogen [Mass/volume] in Urine by Automated test strip 10/14/2023 09:11:16 0.2 0.2, 1.0 (mg/dL) Final Nitrite [Presence] in Urine by Automated test strip 10/14/2023 09:11:16 Positive Abnormal Negative Final Leukocyte esterase [Presence] in Urine by Automated test strip 10/14/2023 09:11:16 Moderate Abnormal Negative Final RBC, Urine 10/14/2023 09:11:16 3-5 Abnormal 0-2 (/HPF) Final WBC, Urine 10/14/2023 09:11:16 50+ Abnormal 0-2 (/HPF) Final Bacteria [#/area] in Urine sediment by Microscopy high power field 10/14/2023 09:11:16 >200 Abnormal 0-25 (/HPF) Final Performing Location [facility] [place] [facility]-[address] 0 - [address] [facility] [address]
--- OUTSIDE RECORDS SUMMARY | 2024-03-09 07:53 | External Medical Summary ---
Author Name Unknown Address Unknown Organization K01:[facility] [place] - [address] [place] [address] Laboratory Report Ordering Provider Test Date Status JC GALICIA 10/14/2023 09:01:12 Final Observation Date Value Abnormality Reference (Units ) Status Parathyrin.intact [Mass/volume] in Serum or Plasma 10/14/2023 09:01:12 26 15-65 (pg/mL) Final Performing Location [facility] [place] - [address] [place] [address]
--- OUTSIDE RECORDS SUMMARY | 2024-03-09 07:53 | External Medical Summary ---
Author Name Unknown Address Unknown Organization K01:[facility] [place] [address] [place] [id number] Laboratory Report Ordering Provider Test Date Status JC GALICIA 10/14/2023 09:01:12 Final Observation Date Value Abnormality Reference (Units ) Status Iron 10/14/2023 09:01:12 100 45-176 (ug /dL) Final Iron-binding capacity 10/14/2023 09:01:12 343 250-425 (ug/dL) Final Transferrin Sat % 10/14/2023 09:01:12 29 15 -55 (%) Final Performing Location [facility] C - [address] [place] [id number]
--- OUTSIDE RECORDS SUMMARY | 2024-03-09 07:53 | External Medical Summary | Summary of Care ---
Author Name Unknown Organization [facility] Address [address] [place] [address] Phone [phone] Care Team Providers Care Museum Director Name Role Phone Garrison Dean DO Primary Care Provider Reason for Visit * Reason Comments Outpatient Testing Encounter Details Date Type Department Care Team (Late st Contact Info) Description 10/14/2023 8:50 AM EDT Laboratory [facility], [facility] [address] [facility] [place] [phone] [facility] [address] [facility] [address] Stage 3b chronic kidney disease (HCC) Allergies Active Allergy Reactions Criticality Noted Date Comments Amoxicillin-Pot Clavulanate Diarrhea 10/22/2010 GI intolerance Gemfibrozil 04/25/2006 Severe intestinal gas and cramping Niacin Er 11/22/2006 Gas, chest pain Ezetimibe Muscle pain 04/23/2010 myalgias Simvastatin 04/23/2010 documented as of this encounter (statuses as of 10/14/2023) Medications Medication Sig Dispensed Refills Start Date End Date Status ASPIRIN 81 MG PO TBECIndications:Curtain Mender sofi ischemic heart disease,HTN, goal below 140/90 [...] :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 Study Title: Genomic Markers for Patients with Cardiovascular Disease Project # [id number] ADVANCE DIRECTIVE INFORMATION 11/02/2004 12/19/2019 Overview: No, Advance Directive brochure given to patient. Historical. Encounter for long-term (cur rent) use of medications 03/23/2004 11/22/2006 Overview: ICD-10 update of inactive term LOC PRIM [id number] 03/27/200211/13 Dyslipidemia, goal to be determined 03/27/2002 05/01/2009 Overview: Per Lipid Taxonomy. PURE HYPERCHOLESTEROLEM 11/13 Urge incontinence 12/19/2019 Overview: Acute. documented as of this encounter (statuses as of 10/14/2023) Immunizations Name Administration Dates Next Due COVID-19 mRNA, LNP-s, No Pre serve, 2-Dose Series ([facility]) 03/02/2021,08/08/2020,07/11/2020 COVID-19, LNP-s, No Preserve , Mauricio-sucrose, Ages 12+ ([employer]) 09/02/2021 Covid-19, Mrna, Lnp-s, Pf, B ivalent, 30 Mcg, IM, 12 yrs and above ([facility]) 03/09/2022 Pneumococcal Conjugate Vacc, 13 Valent (Prevnar) [...] on file documented as of this encounter Plan of Treatment Upcoming Encounters Date Type Department Care Team (Late st Contact Info) Description 12/05/2023 8:00 AM EDT Office Visit [facility] [address] [place] [address] Garrison Dean DO [address] [place] [address] 05/08/2024 8:00 AM EST Office Visit Nephrology, [facility] [address] [place] [address] Megan Gardner MD [address] [facility] [place] [address] Pending Results Name Type Priority Associated Diagnoses Date /Time BASIC METABOLIC PANEL Lab Routine Stage 3b chronic kidney disease (HCC) 10/14/2023 9:01 AM EDT IRON SCREEN, INCLUDING TIBC Lab Routine Stage 3b chronic kidney disease (HCC) 10/14/2023 9:01 AM EDT URIC ACID Lab Routine Stage 3b chronic kidney disease (HCC) 10/14/2023 9:01 AM EDT PTH Lab Routine Stage 3b chronic kidney disease (HCC) 10/14/2023 9:01 AM EDT 25-HYDROXY VITAMIN D Lab Routine Stage 3b chronic kidney disease (HCC) 10/14/2023 9:01 AM EDT MAGNESIUM Lab Routine Stage 3b chronic kidney disease (HCC) 10/14/2023 9:01 AM EDT URINALYSIS WITH MICROSCOPIC EXAM Lab Routine Stage 3b chronic kidney disease (HCC) 10/14/2023 9:11 AM EDT ALBUMIN / CREATININE RATIO, URINE Lab Routine Stage 3b chronic kidney disease (HCC) 10/14/2023 9:11 AM EDT Health Maintenance Due Date Last Done Comments COVID-19 Vaccine ( season) 2023 03/09/2022, 09/02/2021, 03/02/2021, Additional history exists Albumin/Creatinine Ratio 12/01/202311/30/2 023, 05/14/2022, 02/17/2021, Additional history exists CKD HGB USE SMARTSET 03794 12/01/202310/13, 11/30/2022, 11/30/2022, Additional history exists CKD PHOS USE SMARTSET 75751 12/01/202311/13, 07/14/2021, 02/17/2021, Additional history exists Depression [...] Not on filedocumented as of this encounter Procedures Procedure Name Priority Date/Time Associated Diagnosis Comments HGB Routine 10/14/2023 9:01 AM EDT Stage 3b chronic kidney disease (HCC) documented in this encounter Results * HGB (10/14/2023 9:01 AM EDT) HGB 16.0 14.0 - 16.8 g/dL 10/14/2023 9:14 AM EDT [facility] [place] [facility] Blood Venous blood specimen / Unknown Venipuncture / Unknown 10/14/2023 9:01 AM EDT 10/14/2023 9:01 AM EDT Michelle Rodriguez PA-C LAB BLOOD ORD ERABLES [facility] [place] [facility] [facility] [place] [address] documented in this encounter Visit Diagnoses Diagnosis Stage 3b chronic kidney disease (HCC) documented in this encounter Advance Directives * [...] Power of Attor kamilla? No Care Teams Museum Director Relationship Specialty Start Date End Date Garrison Dean DO [address] [place] [address] PCP - General Family Medicine 06/14/19 documented as of this encounter
[2024-03-09 08:22] LABS: Basophils # (auto) 0.02 K/uL (0.00-0.20); Basophils % (auto) 0.3 %; Hematocrit (blood only) 41.1 % (42.0-52.0); Hemoglobin 14.1 g/dl (14.0-18.0); Immature Granulocytes # (auto) 0.02 K/uL (0.01-0.20); Immature Granulocytes % (auto) 0.3 %; Lymphocytes # (auto) 1.77 K/uL (1.20-3.40); Lymphocytes % (auto) 26.1 %; Mean Corpuscular Hemoglobin 31.5 pg (25.0-34.0); Mean Corpuscular Hgb Conc 34.3 g/dL (32.0-36.0); Mean Corpuscular Volume 91.9 fL (80.0-100.0); Mean Platelet Volume 9.8 fL (9.4-12.4); Monocytes # (auto) 0.55 K/uL (0.11-0.59); Monocytes % (auto) 8.1 %; Neutrophils # (auto) 4.41 K/uL (1.40-6.50); Neutrophils % (auto) 65.2 %; Platelet Count 182 K/uL (130-400); RDW Coefficient of Variation 15.9 % (11.5-14.5); RDW Standard Deviation 53.7 fL (36.4-46.3); Red Blood Count 4.47 M/uL (4.70-6.10); White Blood Count 6.77 K/ul (4.8-10.8)
[2024-03-09 08:27] LABS: Calcium 8.6 mg/dl (8.6-10.3); Creatinine Clr Calc Pharmacy 36.2 ml/min; Potassium 4.2 mmol/L (3.5-5.1)
[2024-03-09] MEDS: amLODIPine BESYLATE 5 MG TAB PO SCH (08:49)
[2024-03-09] MEDS: ASPIRIN 81 MG ECTAB PO SCH (08:49)
[2024-03-09] MEDS: ROSUVASTATIN CALCIUM 5 MG TAB PO SCH (08:49)
[2024-03-09] MEDS: ADVANCED PROBIOTIC 625 MG CAPSULE PO SCH (08:49)
[2024-03-09] MEDS: CITALOPRAM 20 MG TAB PO SCH (08:49)
[2024-03-09] MEDS: ISOSORBIDE MONO EXTENDED REL 60 MG TABCR PO SCH (08:49)
[2024-03-09] MEDS: cefTRIAXone SODIUM 2,000 MG/50 ML BAG IV SCH (12:14)
--- NOTE | 2024-03-09 14:30 | Hospitalist Progress Note ---
Date of Service March 09, 2024 Assessment & Plan (1) UTI (urinary tract infection): (2) CAD (coronary artery disease): (3) CKD (chronic kidney disease) stage 3, GFR 30-59 ml/min: (4) HTN (hypertension): (5) Tick bite of abdomen: Plan This is an 88-year-old male who has significant past medical history of CAD with history of angioplasty and stent, HTN and GERD, BPH, CKD stage III baseline creatinine 1.7 and anxiety who presents to the ED due to rigors, chills and episodic confusion x 1 day. Assessment and plan: Chills/Rigors/fever Possible UTI/CAP Metabolic encephalopathy - resolved Recent covid19 infection in 01/2024 Chest x-ray showed possible left lobe pneumonia Follow-up imaging to be completed in 4-6 weeks Remains afebrile with no leukocytosis CT head negative, blood cultures negative x 24 hours Urine culture still pending , UA appeared positive Continue IV Rocephin for presumed pneumonia/UTI Continue p.o. doxycycline for recent tick bite and rule out Lyme Recent tick bite: Initial Lyme screen negative, 10-day course of p.o. Doxy, follow-up lab work CKD-3b: Creatinine at baseline, CTM, avoid nephrotoxic agents CAD with hx of CABG/angioplasty: Hx HTN/HLD -Chronic HAMILTON/exertional CP, follows cards, continue ASA, crestor, metoprolol, amlodipine, imdur Plan for ADC in the next 24 hours if remains afebrile, blood cultures remain negative DVT prophylaxis: Heparin subcu Full code I spent a total of 50 minutes reviewing notes, outpatient records, labs, medication, coordinating, documenting and providing care for this patient excluding time spent in the performance of separately billed services. Admission and Anticipated Discharge Date Admission Date: March 08, 2024 Supervising Physician Co-Signing Physician Notes Plan of care discussed with above provider. Plan to continue IV antibiotics for now; follow-up on final urine culture and blood culture. Possible DC in a.m. depending on clinical improvement. I have reviewed the advanced practitioner's documentation, and I agree with, and take responsibility for the plan of care Subjective Patient seen and examined. No apparent distress. He is awake alert and oriented x 3 on exam. Last fever was last night around 10 PM. Denies any nausea/vomiting/abdominal pain/shortness of breath/chest pain. Anxious for discharge. Review of Systems Review of Systems: All systems reviewed & are unremarkable except as noted in HPI & below Physical Exam Constitutional: WD/WN, vitals as above Eyes: PERRL, conjunctivae normal, anicteric sclerae ENMT: external ear and nose normal, oropharynx normal Neck: trachea midline, no thyromegaly Respiratory: normal respiratory effort, lungs clear to auscultation Cardiovascular: RRR, no murmur, no edema Gastrointestinal (Abdomen): normal bowel sounds, soft, nontender, no hepatosplenomegaly Musculoskeletal: no cyanosis or clubbing, extremities motor strength 5/5 Skin: no rashes, warm and dry Neurologic: PERRL, EOMI, accommodation nl, no face palsy, no dysarthria Psychiatric: A+Ox3, euthymic affect Lymphatic: no cervical or axillary lymphadenopathy Results & Data Results & Data Vital Signs (Past 12 Hours) Vital Signs Temp Pulse Resp BP Pulse Ox O2 Del Method 03/09/24 08:52 62 03/09/24 07:14 36.7 C 57 L 18 118/66 95 Room Air Laboratory Results Laboratory Results WBC 6.77 K/ul (4.8-10.8) 03/09/24 07:34 RBC 4.47 M/uL (4.70-6.10) L 03/09/24 07:34 Hgb 14.1 g/dl (14.0-18.0) 03/09/24 07:34 Hct 41.1 % (42.0-52.0) L 03/09/24 07:34 MCV 91.9 fL (80.0-100.0) 03/09/24 07:34 MCH 31.5 pg (25.0-34.0) 03/09/24 07:34 MCHC 34.3 g/dL (32.0-36.0) 03/09/24 07:34 RDW Std Deviation 53.7 fL (36.4-46.3) H 03/09/24 07:34 RDW Coeff of Law 15.9 % (11.5-14.5) H 03/09/24 07:34 Plt Count 182 K/uL (130-400) 03/09/24 07:34 MPV 9.8 fL (9.4-12.4) 03/09/24 07:34 Immature Gran % (Auto) 0.3 % 03/09/24 07:34 Neut % (Auto) 65.2 % 03/09/24 07:34 Lymph % (Auto) 26.1 % 03/09/24 07:34 Price % (Auto) 8.1 % 03/09/24 07:34 Eos % (Auto) 0.0 % 03/09/24 07:34 Baso % (Auto) 0.3 % 03/09/24 07:34 Neut # (Auto) 4.41 K/uL (1.40-6.50) 03/09/24 07:34 Lymph # (Auto) 1.77 K/uL (1.20-3.40) 03/09/24 07:34 Price # (Auto) 0.55 K/uL (0.11-0.59) 03/09/24 07:34 Eos # (Auto) 0.00 K/uL (0.00-0.50) 03/09/24 07:34 Baso # (Auto) 0.02 K/uL (0.00-0.20) 03/09/24 07:34 Immature Gran # (Auto) 0.02 K/uL (0.01-0.20) 03/09/24 07:34 Sodium 133 mmol/L (136-145) L 03/09/24 07:34 Potassium 4.2 mmol/L (3.5-5.1) 03/09/24 07:34 Chloride 102 mmol/L (98-107) 03/09/24 07:34 Carbon Dioxide 23 mmol/L (21-32) 03/09/24 07:34 Anion Gap 8 (3-11) 03/09/24 07:34 BUN 29 mg/dl (6-23) H 03/09/24 07:34 Creatinine 1.61 mg/dl (0.6-1.4) H 03/09/24 07:34 Est Cr Clr Drug Dosing 36.2 ml/min 03/09/24 07:34 eGFR 40.63 03/09/24 07:34 BUN/Creatinine Ratio 18.0 (10-20) 03/09/24 07:34 Glucose 103 mg/dl (70-99(Fasting)) H 03/09/24 07:34 Lactate 1.8 mmol/L (0.4-2.0) 03/08/24 10:47 Calcium 8.6 mg/dl (8.6-10.3) 03/09/24 07:34 Total Bilirubin 1.4 mg/dl (0.2-1.0) H 03/08/24 10:33 Direct Bilirubin 0.2 mg/dl (0-0.2) 03/08/24 10:33 AST 24 U/L (13-39) 03/08/24 10:33 ALT 22 U/L (7-52) 03/08/24 10:33 Alkaline Phosphatase 62 U/L (34-104) 03/08/24 10:33 Total Protein 6.9 gm/dl (6.0-8.3) 03/08/24 10:33 Albumin 4.2 gm/dl (3.4-5.0) 03/08/24 10:33 Globulin 2.7 gm/dl (2.5-4.0) 03/08/24 10:33 Albumin/Globulin Ratio 1.6 (0.9-2) 03/08/24 10:33 Lipase 13 U/L (11-82) 03/08/24 10:33 Procalcitonin 0.40 ng/ml (0-0.5) 03/08/24 10:33 Urine Color Yellow 03/08/24 11:47 Urine Appearance Cloudy (Clear) A 03/08/24 11:47 Urine pH 7.0 (4.5-7.5) 03/08/24 11:47 Ur Specific [place] 1.017 (1.000-1.030) 03/08/24 11:47 Urine Protein 1+ (Negative) H 03/08/24 11:47 Urine Glucose (UA) Negative (Negative) 03/08/24 11:47 Urine Ketones Negative (Negative) 03/08/24 11:47 Urine Blood Negative (Negative) 03/08/24 11:47 Urine Nitrite Negative (Negative) 03/08/24 11:47 Urine Bilirubin Negative (Negative) 03/08/24 11:47 Urine Urobilinogen Negative (Negative) 03/08/24 11:47 Ur Leukocyte Esterase 1+ (Negative) H 03/08/24 11:47 Urine WBC (Auto) 11-20 /hpf (0-5) H 03/08/24 11:47 Urine RBC (Auto) 0-2 /hpf (0-2) 03/08/24 11:47 U Hyaline Cast (Auto) 0-2 /lpf (0-2) 03/08/24 11:47 U Epithel Cells (Auto) 0-2 /hpf (0-2) 03/08/24 11:47 Urine Bacteria (Auto) 4+ (None Seen) H 03/08/24 11:47 Lyme Disease Screen Negative (Negative) 03/08/24 10:33 Impressions Chest X-Ray 03/08/24 10:41 SINGLE VIEW CHEST CLINICAL HISTORY: Sepsis. FINDINGS: An AP, portable, upright chest radiograph is obtained. No prior studies are available for comparison at the time of dictation. The patient is status post midline sternotomy. The heart is enlarged noting atherosclerotic calcification of the thoracic aorta. The pulmonary vasculature is noncongested. There is airspace consolidation at the left lung base and a small left pleural effusion. Scarring/atelectasis is noted at the right lung base. No pneumothorax is seen. The skeletal structures are osteopenic. The bony thorax is grossly intact. Degenerative change is noted in the shoulders and spine. IMPRESSION: 1. Cardiomegaly without radiographic evidence of congestive failure. 2. Left basilar consolidation could represent atelectasis versus pneumonia/aspiration pneumonitis. Clinical correlation will be required and radiographic follow-up to resolution is recommended. Follow-up imaging should include both PA and lateral views. 3. Small left pleural effusion. ACT 112: Negative or not required by law. Electronically signed by: Jonathan Dill M.D. 03/08/2024 10:[address] 03/08/24 10:42 CT head/brain wo con CLINICAL HISTORY: 88 years-old Male with ams. Acutely altered mental status TECHNIQUE: Multiple axial CT images of the head were obtained without contrast. A dose lowering technique was utilized adhering to the principles of ALARA. CT DOSE: 625.8 mGy.cm COMPARISON: None. FINDINGS: No acute intracranial hemorrhage, midline shift, intracranial mass, hydrocephalus, territorial ischemia or abnormal extra-axial collection. Involutional changes with chronic microvascular ischemic disease. Chalo cisterna magna. The calvarium is intact. Trace mastoid effusions. Minimal mucosal thickening of the ethmoid air cells. Unremarkable soft tissues. Prior bilateral lens repair. IMPRESSION: No acute intracranial abnormality identified. ACT 112: Negative or not required by law. The above report was generated using voice recognition software. It may contain grammatical, syntax or spelling errors. Electronically signed by: Dagoberto Garcia M.D. 03/08/2024 11:35 AM
[2024-03-09 22:05] VITALS: O2SAT 93
[2024-03-10 07:48] LABS: Basophils # (auto) 0.04 K/uL (0.00-0.20); Basophils % (auto) 0.7 %; Eosinophils # (auto) 0.01 K/uL (0.00-0.50); Eosinophils % (auto) 0.2 %; Hematocrit (blood only) 39.5 % (42.0-52.0); Hemoglobin 13.5 g/dl (14.0-18.0); Immature Granulocytes # (auto) 0.03 K/uL (0.01-0.20); Immature Granulocytes % (auto) 0.5 %; Lymphocytes # (auto) 1.59 K/uL (1.20-3.40); Lymphocytes % (auto) 26.7 %; Mean Corpuscular Hemoglobin 31.7 pg (25.0-34.0); Mean Corpuscular Hgb Conc 34.2 g/dL (32.0-36.0); Mean Corpuscular Volume 92.7 fL (80.0-100.0); Mean Platelet Volume 10.5 fL (9.4-12.4); Monocytes # (auto) 0.79 K/uL (0.11-0.59); Monocytes % (auto) 13.3 %; Neutrophils % (auto) 58.6 %; Platelet Count 179 K/uL (130-400); RDW Coefficient of Variation 15.6 % (11.5-14.5); RDW Standard Deviation 53.2 fL (36.4-46.3); Red Blood Count 4.26 M/uL (4.70-6.10); White Blood Count 5.96 K/ul (4.8-10.8)
[2024-03-10 07:53] LABS: Albumin Globulin Ratio 1.6 (0.9-2); Albumin Level 3.8 gm/dl (3.4-5.0); BUN Creatinine Ratio 19.5 (10-20); Bilirubin,Total 0.7 mg/dl (0.2-1.0); Calcium 8.3 mg/dl (8.6-10.3); Creatinine Clr Calc Pharmacy 37.8 ml/min; Globulin 2.4 gm/dl (2.5-4.0); Total Protein 6.2 gm/dl (6.0-8.3)
[2024-03-10 07:56] VITALS: BP 149/76; PULSE 66; RESP 16; TEMP 98.6
--- NOTE | 2024-03-10 09:39 | Discharge Summary ---
Discharge Summary Date of Service March 10, 2024 The patient is an 88-year-old male with a past medical history of CAD, angioplasty and stent, HTN, GERD, BPH, CKD stage III, anxiety who presented to the ED on 03/08/2024 with complaints of rigors/chills and episodic confusion x 1 day. Patient reported on arrival to the ED that he became very chilled. At this time, he felt like he had a fever but was unable to take his temperature. He also felt confused and disoriented. Patient reports to having a degree of ambulatory dysfunction at baseline but it was worse. The patient's daughter went to his house and brought him immediately to the ER. He was recently diagnosed with COVID in January 2024. Patient at this time also reported that on the Tuesday prior to admission he had pulled a tick off of his right lower quadrant. He was unsure how long it was there and he felt that it was engorged. On arrival to the ER, the patient's labs were fairly unremarkable. His urinalysis was consistent with possible UTI. His initial Lyme screen was negative. Chest x-ray showed possible left lower lobe atelectasis versus infilt rate. He received IV fluids IV Rocephin and oral Zithromax and was admitted to the hospital. Throughout the patient's hospitalization he was continued on IV Rocephin and he was started on doxycycline to treat suspected Lyme disease although initial Lyme screening was negative. Patient remained afebrile over 24 hours. His urine culture was positive for Staphylococcus epidermis which is likely a contaminant. His blood cultures remain negative. The patient will be discharged on oral doxycycline to complete a 10-day course for suspected Lyme disease and Ceftin for presumed pneumonia. The patient can continue his home medications. The patient will need to have follow-up imaging of his chest in 4- 6 weeks. He would need to follow-up with his PCP within 1 week of discharge. The patient's labs/vitals are stable. He is stable for discharge home today on 03/10/2024. Physical therapy saw the patient on 03/09/2024 and recommended safe return home. Principal Dx & Hospital Course #1 = Principal Diagnosis (1) UTI (urinary tract infection): (2) CAD (coronary artery disease): (3) CKD (chronic kidney disease) stage 3, GFR 30-59 ml/min: (4) HTN (hypertension): (5) Tick bite of abdomen: Plan This is an 88-year-old male who has significant past medical history of CAD with history of angioplasty and stent, HTN and GERD, BPH, CKD stage III baseline creatinine 1.7 and anxiety who presents to the ED due to rigors, chills and episodic confusion x 1 day. Assessment and plan: Chills/Rigors/fever Possible UTI/CAP Metabolic encephalopathy - resolved Recent covid19 infection in 01/2024 Chest x-ray showed possible left lobe pneumonia Follow-up imaging to be completed in 4-6 weeks Remains afebrile with no leukocytosis CT head negative, blood cultures negative x 24 hours Urine culture still pending , UA appeared positive Continue IV Rocephin for presumed pneumonia/UTI Continue p.o. doxycycline for recent tick bite and rule out Lyme Recent tick bite: Initial Lyme screen negative, 10-day course of p.o. Doxy, follow-up lab work CKD-3b: Creatinine at baseline, CTM, avoid nephrotoxic agents CAD with hx of CABG/angioplasty: Hx HTN/HLD -Chronic HAMILTON/exertional CP, follows cards, continue ASA, crestor, metoprolol, amlodipine, imdur Plan for ADC in the next 24 hours if remains afebrile, blood cultures remain ne gative DVT prophylaxis: Heparin subcu Full code I spent a total of 50 minutes reviewing notes, outpatient records, labs, medication, coordinating, documenting and providing care for this patient exc luding time spent in the performance of separately billed services. Notes For Next Care Provider Patient will need a follow-up chest x-ray in 4-6 weeks to determine resolution of pneumonia Medication Changes From Visit Doxycycline and Ceftin added for treatment of pneumonia/UTI/presumed Lyme dise ase. Home medications remain the same Admission HPI Per Admitting Provider This is an 88-year-old male who has significant past medical history of CAD with history of angioplasty and stent, HTN and GERD, BPH, CKD stage III baseline creatinine 1.7 and anxiety who presents to the ED due to rigors, chills and episodic confusion x 1 day. History obtained from ED provider, patient and external chart review.Daughter at bedside also helps elicit history. Patient reports last evening he became very chilled. He had to put on his insulated underwear and wrapped up in a quilted blanket. He felt like he had a fever but was unable to take it due to not being able to locate his thermometer. He also felt like he was confused and disoriented. When trying to walk he felt like he had to hold onto things. He does have a degree of ambulatory dysfunction at baseline, but this was much worse. When he woke up this morning he still felt slightly disoriented and called his daughter. According to the daughter patient was not slurring his words but did appear anxious. She went over to patient's house and brought him immediately to the ED. Patient denies any sweats, lightheadedness, dizziness, nausea, vomiting, abdominal pain, change in his bowel or urinary habits. He does have chronic shortness of breath in the setting of his CAD. He also has chronic exertional angina for which he follows with cardiology. He has a mild dry cough. He was dx with covid-19 in january, but this has resolved. He has a poor appetite at baseline. He has been trying to increase his fluid intake. He also reports on Tuesday he pulled a tick off to his right lower quadrant of his abdomen. He is unsure how long it was there and feels it was likely engorged. He did not try any [id number] medications at home. In ED patient remained hemodynamically stable. His CBC and CMP was generally unremarkable. His creatinine was at baseline at 1.7. His urinalysis was concerning for possible infection. His initial Lyme disease screen was negative. Chest x-ray revealed concern for possible left lower lobe atelectasis versus infiltrate. He received a liter of IV fluid, IV Rocephin and oral azithromycin. Patient does report he has a history of UTIs in the past. He also reports whenever he had Lyme's disease over a year ago and he had a fever he was disoriented at that time as well. Admission Exam Per Admitting Provider Constitutional: WD/WN, vitals as above, NAD, sitting up in bed, pleasant, conversing easily Head: Normocephalic, Atraumatic Eyes: PERRL, conjunctivae normal, anicteric sclerae ENMT: external ear and nose normal, oropharynx normal Neck: trachea midline, no thyromegaly normal visual inspection Respiratory: normal respiratory effort, lungs clear to auscultation, no wheeze, rales, rhonchi. Normal insp/exp effort, no accessory muscle use Cardiovascular: RRR, no murmur, no edema Vessels: no JVD or carotid bruit Chest: normal inspection of chest Abdomen: normal bowel sounds, soft, nontender, no hepatosplenomegaly Musculoskeletal: no cyanosis or clubbing, extremities motor strength 5/5 Skin: + evidence of insect bite on RLQ of abd, no erythema migrans, no rashes, warm and dry normal turgor Neurologic: PERRL, EOMI, accommodation nl, no face palsy, no dysarthria CN's II-XI intact bilaterally and moves all extremities Psychiatric: A+Ox3, euthymic affect Lymphatic: no cervical or axillary lymphadenopathy : deferred Discharge Exam Constitutional WD/WN, vitals as above Eyes PERRL, conjunctivae normal, anicteric sclerae ENMT external ear and nose normal, oropharynx normal Neck trachea midline, no thyromegaly Cardiovascular RRR, no murmur, no edema Gastrointestinal (Abdomen) normal bowel sounds, soft, nontender, no hepatosplenomegaly Musculoskeletal no cyanosis or clubbing, extremities motor strength 5/5 Skin no rashes, warm and dry Neurologic PERRL, EOMI, accommodation nl, no face palsy, no dysarthria Psychiatric A+Ox3, euthymic affect Lymphatic no cervical or axillary lymphadenopathy Updated Medication List Medication Instructions Recorded Confirmed Type albuterol sulfate 90 mcg/actuation 2 puff inhalation Q6H PRN 03/08/24 03/08/24 History aerosol inhaler cough,sob,wheezing amlodipine 2.5 mg tablet 2.5 mg PO QAM 03/08/24 03/08/24 History aspirin 81 mg tablet,delayed 81 mg PO QAM 03/08/24 03/08/24 History release citalopram 20 mg tablet 20 mg PO QAM 03/08/24 03/08/24 History isosorbide mononitrate 60 mg 60 mg PO QAM 03/08/24 03/08/24 History tablet,extended release 24 hr metoprolol succinate 25 mg 12.5 mg PO QAM 03/08/24 03/08/24 History tablet,extended release 24 hr nitroglycerin 0.4 mg sublingual 0.4 mg sublingual UD PRN Chest Pain 03/08/24 03/08/24 History tablet rosuvastatin 5 mg tablet 5 mg PO QAM 03/08/24 03/08/24 History cefuroxime axetil 500 mg tablet 500 mg PO BID 5 days #10 tabs 03/10/24 Rx doxycycline hyclate 100 mg capsule 100 mg PO BID 8 days #16 caps 03/10/24 Rx Hospital Stay Data Consultations 03/08/24 11:43 ED Decision to Admit Stat Diagnostic Imagining Performed 03/08/24 10:42 CT head/brain wo con Stat Pending Results Patient Have Any Pending Studies at Discharge: No Discharge Instructions Given to Patient (Per Discharging Provider) You are being discharged home on Ceftin and doxycycline for presumed Lyme disease, Ceftin will cover pneumonia and potential UTI. Follow-up with your primary care provider within 1 week of discharge. Meet please make sure you are taking your antibiotics to completion. Report to the ED with worsening symptoms. Your blood cultures were negative. Total Time Total Time Spent Total Time Spent (In Minutes): 60 Total Time Includes: Examination of the Patient, Discharge Planning and Communication With Other Providers Supervising Physician Co-Signing Physician Notes Patient seen and examined at bedside. He reports that he is feeling much better. Plan to discharge on doxycycline and cefuroxime. Plan to follow-up with PCP I have reviewed the advanced practitioner's documentation, and I agree with, and take responsibility for the plan of care
== END 2024-03-10 12:11 | disposition home or self-care (01) ==
LOC: ED 09:57 → EDINP 09:57 → SUATTDRO 12:20 → 3W 14:37